=== PATIENT | male | born 1985 ===

== ENCOUNTER 2018-07-04 10:00 | Inpatient (IN) ==
--- NOTE | 2018-07-04 10:51 | ED ---
HPI General Chief complaint: Extremity Injury, Lower Stated complaint: Left leg pain Time Seen by Provider: 07/04/18 10:15 History of Present Illness HPI narrative: Patient is a 33-year-old male presents the emergency department with low back pain radiating down his right leg intermittently for the past 2 weeks. He is been to urgent care twice in the past 2 weeks for evaluation of this, he was started on muscle relaxers and states that it feels fine as long she is has some muscle relaxers. Denies any saddle anesthesia, he states with the pain medication he has been urinating more frequently. Denies history of IV drug abuse, denies history he states he was told that if he continued to have pain he should present here for a CAT scan of his back. Patient also has had intermittent fevers, his last visit to urgent care center actually 100.9 fever at the time and he did not understand why. He also was evaluated prior to the back pain for flulike symptoms at another urgent care. He states he continues to have shocklike sensations going down his right leg throughout the day and he is quite concerned over. Related Data Home Medications Medication Instructions Recorded Confirmed cyclobenzaprine 10 mg PO TID 07/04/18 07/04/18 diclofenac sodium 75 mg PO BID 07/04/18 07/04/18 Allergies Allergy/AdvReac Type Severity Reaction Status Date / Time No Known Allergies Allergy Verified 07/04/18 10:26 Review of Systems ROS: all other systems reviewed are negative FORMERLY [facility], [facility] Medical History Medical History Patient denies medical problems (Acute) Surgical History Surgical History No history of previous surgery (Acute) Social History Social History Smoking Status: Never smoker How Often Do You Have a Drink Containing Alcohol: Never Immunization History Tetanus Immunization: <5 Years Course Initial Documented Vital Signs Temperature 98.4 F 07/04/18 10:08 Pulse Rate 122 H 07/04/18 10:08 Respiratory Rate 16 07/04/18 10:08 Blood Pressure 143/63 H 07/04/18 10:08 Pulse Oximetry 100 07/04/18 10:08 Last Documented Vital Signs Temperature 98.4 F 07/04/18 10:08 Pulse Rate 112 H 07/04/18 14:34 Respiratory Rate 18 07/04/18 14:34 Blood Pressure 125/64 07/04/18 14:34 Pulse Oximetry 98 07/04/18 14:34 Critical Care Time Critical Care Time: Yes Total Critical Care Time: 35 Attestation: Aggregate critical care time was 35 minutes. Time to perform other separately billable procedures was not included in the critical care time. My time did not include minutes spent treating any other patients simultaneously or on activities that did not directly contribute to the patient's treatment. The services I provided to this patient were to treat and/or prevent clinically significant deterioration that could result in: Disability and Organ Failure. I provided critical care services requiring my management, as noted below: Chart data review, documentation time, medication orders and management, vital sign assessments/reviewing monitor data, ordering and reviewing lab tests, ordering and interpreting/reviewing x-rays and diagnostic studies, care of the patient and discussion of the patient with the admitting physicians. Medical Decision Making MDM Narrative Medical decision making narrative: Patient room in the emergency department, he appears well and in no obvious distress, quite comfortable. His chief complaint is that sciatic type pain down his right lower extremity. Given he has had intermittent fevers I think that he needs to rule out abscess of his spine even though he is very low risk for it. An MRI was ordered. I have added basic labs on specifically for creatinine for IV contrast for his MRI. Interestingly enough the patient's white blood cell count is elevated near 30, 000 with predominantly neutrophils. He is afebrile here but does elevate elevated heart rate. A liter of normal saline was given to him. He certainly does not appear toxic in any way. MRI was negative for abscess or source of this elevated white blood cell count and intermittent fevers. He does have some degenerative disc disease. Chest x-ray and urinalysis was added on which also do not explain the patient's elevated white blood cell count ESR CRP lactic acid blood cultures were added on and the patient went for CAT scan of the abdomen. I have convinced him that he needs to stay in the hospital for evaluation. The differential diagnosis at this point included lymphoma leukemia infection. Patient went for CAT scan of the abdomen which appears to reveal the source of his white blood cell count which is a liver abscess. The patient had Shawn been started on broad-spectrum antibiotics including vancomycin and Zosyn. Patient was discussed with Dr. Brady who will admit. We discussed getting an infectious disease consult. Medical Screen Exam Complete: Yes Emergency Medical Condition: Yes Lab Data Result diagrams: 07/04/18 11:19 07/04/18 11:19 Lab Results 07/04/18 07/04/18 07/04/18 Range/Units 11:19 11:19 12:13 WBC 29.3 H (4.0-11.0) th/mm3 RBC 4.43 L (4.50-5.90) mil/mm3 Hgb 12.5 L (13.0-17.0) gm/dL Hct 36.4 L (39.0-51.0) % MCV 82.1 (80.0-100.0) fL MCH 28.3 (27.0-34.0) pg MCHC 34.4 (32.0-36.0) % RDW 13.7 (11.6-17.2) % Plt Count 392 (150-450) th/mm3 MPV 7.6 (7.0-11.0) fL Neut % (Auto) 86.7 H (16.0-70.0) % Lymph % (Auto) 6.2 L (9.0-44.0) % [place] % (Auto) 6.7 (0.0-8.0) % Eos % (Auto) 0.2 (0.0-4.0) % Baso % (Auto) 0.2 (0.0-2.0) % Neut # (Auto) 25.4 H (1.8-7.7) th/mm3 Lymph # (Auto) 1.8 (1.0-4.8) th/mm3 [place] # (Auto) 2.0 H (0.0-0.9) th/mm3 Eos # (Auto) 0.0 (0.0-0.4) th/mm3 Baso # (Auto) 0.0 (0.0-0.2) th/mm3 WBC Differential . Differential Comment Auto diff final ESR (0-15) mm/hr Sodium 135 L (136-145) meq/L Potassium 3.6 (3.5-5.1) meq/L Chloride 97 L (98-107) meq/L Carbon Dioxide 29.6 (21.0-32.0) meq/L Anion Gap 8 (5-15) meq/L BUN 22 H (7-18) mg/dL Creatinine 0.88 (0.60-1.30) mg/dL Estimated GFR Greater than 89 (>89) mL/min Random Glucose 132 H (74-106) mg/dL Lactic Acid (0.4-2.0) mmol/L Calcium 8.9 (8.5-10.1) mg/dL C-Reactive Protein (0.00-0.30) mg/dL Urine Color Daphne (Yellw/Straw) Urine Clarity Hazy H (Clear) Urine pH 6.0 (5.0-8.5) Ur Specific [place] 1.025 (1.002-1.035) Urine Protein 100 H (Neg-Trace) mg/dL Urine Glucose (UA) Negative (Negative) mg/dL Urine Ketones Negative (Negative) mg/dL Urine Occult Blood Negative (Negative) Urine Nitrate Negative (Negative) Urine Bilirubin Negative (Negative) Urine Urobilinogen Less than 2 (Less than 2) mg/dL Ur Leukocyte Esterase Negative (Negative) Urine RBC 1 (0-3) /hpf Urine WBC 5 (0-5) /hpf Urine Bacteria Moderate H (None) /hpf Hyaline Casts 33 (0-3) /lpf Urine Mucus Moderate H (Occasional) /lpf Ur Microscopic Review Not Reportable Monoscreen (Neg) 07/04/18 07/04/18 07/04/18 Range/Units 14:19 14:19 14:19 WBC (4.0-11.0) th/mm3 RBC (4.50-5.90) mil/mm3 Hgb (13.0-17.0) gm/dL Hct (39.0-51.0) % MCV (80.0-100.0) fL MCH (27.0-34.0) pg MCHC (32.0-36.0) % RDW (11.6-17.2) % Plt Count (150-450) th/mm3 MPV (7.0-11.0) fL Neut % (Auto) (16.0-70.0) % Lymph % (Auto) (9.0-44.0) % [place] % (Auto) (0.0-8.0) % Eos % (Auto) (0.0-4.0) % Baso % (Auto) (0.0-2.0) % Neut # (Auto) (1.8-7.7) th/mm3 Lymph # (Auto) (1.0-4.8) th/mm3 [place] # (Auto) (0.0-0.9) th/mm3 Eos # (Auto) (0.0-0.4) th/mm3 Baso # (Auto) (0.0-0.2) th/mm3 WBC Differential Differential Comment ESR 21 H (0-15) mm/hr Sodium (136-145) meq/L Potassium (3.5-5.1) meq/L Chloride (98-107) meq/L Carbon Dioxide (21.0-32.0) meq/L Anion Gap (5-15) meq/L BUN (7-18) mg/dL Creatinine (0.60-1.30) mg/dL Estimated GFR (>89) mL/min Random Glucose (74-106) mg/dL Lactic Acid 1.1 (0.4-2.0) mmol/L Calcium (8.5-10.1) mg/dL C-Reactive Protein 22.70 H (0.00-0.30) mg/dL Urine Color (Yellw/Straw) Urine Clarity (Clear) Urine pH (5.0-8.5) Ur Specific [place] (1.002-1.035) Urine Protein (Neg-Trace) mg/dL Urine Glucose (UA) (Negative) mg/dL Urine Ketones (Negative) mg/dL Urine Occult Blood (Negative) Urine Nitrate (Negative) Urine Bilirubin (Negative) Urine Urobilinogen (Less than 2) mg/dL Ur Leukocyte Esterase (Negative) Urine RBC (0-3) /hpf Urine WBC (0-5) /hpf Urine Bacteria (None) /hpf Hyaline Casts (0-3) /lpf Urine Mucus (Occasional) /lpf Ur Microscopic Review Monoscreen (Neg) 07/04/18 Range/Units 14:19 WBC (4.0-11.0) th/mm3 RBC (4.50-5.90) mil/mm3 Hgb (13.0-17.0) gm/dL Hct (39.0-51.0) % MCV (80.0-100.0) fL MCH (27.0-34.0) pg MCHC (32.0-36.0) % RDW (11.6-17.2) % Plt Count (150-450) th/mm3 MPV (7.0-11.0) fL Neut % (Auto) (16.0-70.0) % Lymph % (Auto) (9.0-44.0) % [place] % (Auto) (0.0-8.0) % Eos % (Auto) (0.0-4.0) % Baso % (Auto) (0.0-2.0) % Neut # (Auto) (1.8-7.7) th/mm3 Lymph # (Auto) (1.0-4.8) th/mm3 [place] # (Auto) (0.0-0.9) th/mm3 Eos # (Auto) (0.0-0.4) th/mm3 Baso # (Auto) (0.0-0.2) th/mm3 WBC Differential Differential Comment ESR (0-15) mm/hr Sodium (136-145) meq/L Potassium (3.5-5.1) meq/L Chloride (98-107) meq/L Carbon Dioxide (21.0-32.0) meq/L Anion Gap (5-15) meq/L BUN (7-18) mg/dL Creatinine (0.60-1.30) mg/dL Estimated GFR (>89) mL/min Random Glucose (74-106) mg/dL Lactic Acid (0.4-2.0) mmol/L Calcium (8.5-10.1) mg/dL C-Reactive Protein (0.00-0.30) mg/dL Urine Color (Yellw/Straw) Urine Clarity (Clear) Urine pH (5.0-8.5) Ur Specific [place] (1.002-1.035) Urine Protein (Neg-Trace) mg/dL Urine Glucose (UA) (Negative) mg/dL Urine Ketones (Negative) mg/dL Urine Occult Blood (Negative) Urine Nitrate (Negative) Urine Bilirubin (Negative) Urine Urobilinogen (Less than 2) mg/dL Ur Leukocyte Esterase (Negative) Urine RBC (0-3) /hpf Urine WBC (0-5) /hpf Urine Bacteria (None) /hpf Hyaline Casts (0-3) /lpf Urine Mucus (Occasional) /lpf Ur Microscopic Review Monoscreen Neg (Neg) Imaging Data Radiologist's impression: Lumbar Spine MRI 07/04/18 10:49 CONCLUSION: 1. Minimal degenerative disc disease at L4-5 and L5-S1 without central canal stenosis. 2. Minimal caudal right neural foraminal narrowing at L5-S1 without evidence for impingement. 3. No abnormal enhancement. Chest X-Ray 07/04/18 11:54 CONCLUSION: No acute cardiopulmonary process. Abdomen/Pelvis CT 07/04/18 14:04 CONCLUSION: 1. 4.9 x 3.6 x 3.4 cm peripherally enhancing low density mass in segment 8 of the liver extending to the dome. This lesion is most concerning for liver abscess. Less likely differential consideration includes hepatic mass. Discharge Plan Discharge Disposition Patient Disposition: 30 Still Patient Discharge Condition Condition: Fair Discharge Details Diagnosis: Sepsis, Abscess of liver, Sciatica Physicians Team ED Provider: Reuben Alicia Primary Care Provider: UNKNOWN, Rxs /Orders / Referrals /Forms Prescriptions: No Action cyclobenzaprine 10 mg Tablet 10 mg PO TID RF: 0 diclofenac sodium 75 mg Tablet,Delayed Release (Dr/Ec) 75 mg PO BID RF: 0 Status ED Status: Admitted Patient
[2018-07-04 11:36] LABS: Baso % (Auto) 0.2 % (0.0-2.0); Eos % (Auto) 0.2 % (0.0-4.0); Hematocrit 36.4 % (39.0-51.0); Hemoglobin 12.5 gm/dL (13.0-17.0); Lymph # (Auto) 1.8 th/mm3 (1.0-4.8); Lymph % (Auto) 6.2 % (9.0-44.0); Mean Corpuscular HGB Conc 34.4 % (32.0-36.0); Mean Corpuscular Hemoglobin 28.3 pg (27.0-34.0); Mean Corpuscular Volume 82.1 fL (80.0-100.0); Mean Platelet Volume 7.6 fL (7.0-11.0); Mono % (Auto) 6.7 % (0.0-8.0); Neut # (Auto) 25.4 th/mm3 (1.8-7.7); Neut % (Auto) 86.7 % (16.0-70.0); Platelet Count 392 th/mm3 (150-450); Red Blood Count 4.43 mil/mm3 (4.50-5.90); Red Cell Distribution Width 13.7 % (11.6-17.2); White Blood Count 29.3 th/mm3 (4.0-11.0)
[2018-07-04 11:51] LABS: Anion Gap 8 meq/L (5-15); Blood Urea Nitrogen 22 mg/dL (7-18); Calcium 8.9 mg/dL (8.5-10.1); Carbon Dioxide 29.6 meq/L (21.0-32.0); Chloride 97 meq/L (98-107); Glomerular Filtration Rate Greater Than 89 mL/min (>89); Glucose,Random 132 mg/dL (74-106); Potassium 3.6 meq/L (3.5-5.1); Sodium 135 meq/L (136-145)
--- NOTE | 2018-07-04 12:23 | XR ---
EXAM DATE: 07/04/2018 12:17 PM EST AGE/SEX: 33 years / Male INDICATIONS: Right leg pain. CLINICAL DATA: This is the patient's initial encounter. Patient reports that signs and symptoms have been present for 2 weeks and indicates a pain score of 5/10. MEDICAL/SURGICAL HISTORY: None. None. COMPARISON: No prior exams available for comparison. FINDINGS: A single AP view of the chest demonstrates the lungs to be symmetrically aerated without evidence of mass, infiltrate or effusion. The cardiomediastinal contours are unremarkable. Osseous structures a re intact. CONCLUSION: No acute cardiopulmonary process. Electronically signed by: Master Rosa MD 07/04/2018 12:22 PM EST
[2018-07-04] MEDS ORDERED: Gadobutrol PF 7.5 MMOL/7.5 ML Vial (for RAD) IV.SIG ONE (12:51)
[2018-07-04 12:54] LABS: Bacteria,Urine Moderate /hpf; Bilirubin,Urine Negative (Negative); Clarity,Urine Hazy (Clear); Color,Urine Amber (Yellw/Straw); Glucose,Urine (UA) Negative (Negative); Hyaline Casts,Urine 33 /lpf (0-3); Leukocyte Esterase,Urine Negative (Negative); Mucus,Urine Moderate /lpf (Occasional); Nitrite,Urine Negative (Negative); Specific Gravity,Urine 1.025 (1.002-1.035)
--- NOTE | 2018-07-04 13:44 | MR ---
EXAM DATE: 07/04/2018 1:05 PM EST AGE/SEX: 33 years / Male INDICATIONS: Radiculopathy. Pain in back and down right leg with fevers and increase white count. CLINICAL DATA: This is the patient's initial encounter. Patient reports that signs and symptoms have been present for 4 - 6 days and indicates a pain score of 3/10. MEDICAL/SURGICAL HISTORY: None. None. COMPARISON: No prior exams available for comparison. TECHNIQUE: Multiplanar, multisequence MRI examination of the lumbar spine was performed without and with 7cc ml Gadavist (gadobutrol) contrast as a single exam dose. FINDINGS: Vertebra: The most caudal-appearing lumbar vertebra is numbered as L5. Vertebral Body heights are in tact. Sagital alignment is maintained. Focal regions of increased T1 and T2 signal in the S2 and S3 likely reflecting small hemangiomas. Discs: Disc spaces are maintained. Conus: Normal level and configuration. POST-CONTRAST: No abnormal areas of enhancement are seen. Paraspinal Soft Tissues: No significantfocal renal abnormalities in the visualized kidneys. Visualize d aorta is non-aneurysmal. No Retroperitoneal adenopathy. T12-L1: The thecal sac has a normal diameter. No evidence of disc bulge or protrusion. The neural foramina are patent bilaterally. L1-L2: The thecal sac has a normal diameter. No evidence of disc bulge or protrusion. The neural foramina are patent bilaterally. L2-L3: The thecal sac has a normal diameter. No evidence of disc bulge or protrusion. The neural foramina are patent bilaterally. L3-L4: The thecal sac has a normal diameter. No evidence of disc bulge or protrusion. The neural foramina are patent bilaterally. L4-L5: Subtle posterior disc protrusion without central canal or neural foraminal stenosis. L5-S1: Minimal diffuse disc bulge with superimposed central posterior disc protrusion. No significa nt central canal stenosis. Very mild caudal right neural foraminal narrowing. CONCLUSION: 1. Minimal degenerative disc disease at L4-5 and L5-S1 without central canal stenosis. 2. Minimal caudal right neural foraminal narrowing at L5-S1 without evidence for impingement. 3. No abnormal enhancement. Electronically signed by: Judson Arteaga MD 07/04/2018 1:43 PM EST
[2018-07-04] MEDS ORDERED: Sod Chloride 0.9% Inj 1,000 ML IV.SIG SCH (14:45)
[2018-07-04 15:37] LABS: Mono Screen Neg (Neg)
[2018-07-04] MEDS ORDERED: Piperacil/Tazo 4.5 GM Premix 4.5 GM/100 ML BAG IV.SIG ONE (15:45)
[2018-07-04] MEDS ORDERED: Vancomycin Inj 1,000 MG in Sodium Chlor 0.9% Inj 250 ML IV.SIG ONE (15:45)
--- NOTE | 2018-07-04 16:33 | CT ---
EXAM DATE: 07/04/2018 4:27 PM EST AGE/SEX: 33 years / Male INDICATIONS: Right leg pain and elevated white blood cell count today. CLINICAL DATA: This is the patient's initial encounter. Patient reports that signs and symptoms have been present for 1 day and indicates a pain score of 5/10. MEDICAL/SURGICAL HISTORY: None. None. ORAL CONTRAST: No oral contrast ingested. RADIATION DOSE: 5.13 CTDI (mGy) COMPARISON: No prior exams available for comparison. TECHNIQUE: Multiple contiguous axial images were obtained through the abdomen and pelvis following b olus infusion of 95 ml Omnipaque 350 (iohexol) nonionic water-soluble contrast as a single exam dos e. No oral contrast ingested. Using automated exposure control and adjustment of the mA and/or kV ac cording to patient size, radiation dose was kept as low as reasonably achievable to obtain optimal di agnostic quality images. DICOM format image data is available electronically for review and comparis on. FINDINGS: LOWER LUNGS: The visualized lower lungs are clear. LIVER: There is a 4.9 x 3.6 x 3.4 cm peripherally enhancing low density mass in segment 8 of liver w ith small subcentimeter satellite lesion medially. This lesion abuts the dome of the liver. Liver oth erwise appears normal in appearance without evidence for intrahepatic ductal dilatation or volume los s. SPLEEN: Homogeneous density without enlargement. PANCREAS: Unremarkable without mass or calcification. KIDNEYS: Kidneys demonstrate symmetrical enhancement and are symmetrical in size without evidence fo r radiopaque renal calculi or hydronephrosis. ADRENAL GLANDS: Unremarkable. AORTA: Avelina-aneurysmal. BOWEL/MESENTERY: The bowel loops are grossly unremarkable. The cecum and sigmoid colon have a luis angel l configuration. No free fluid or drainable fluid collections. No free air or pneumatosis. ABDOMINAL WALL: Intact. RETROPERITONEUM: No evidence of adenopathy in the retrocrural, para-aortic, or deep pelvic regions. BLADDER: Contours are smooth. REPRODUCTIVE: No abnormal masses or calcifications seen. BONY STRUCTURES: Unremarkable. CONCLUSION: 1. 4.9 x 3.6 x 3.4 cm peripherally enhancing low density mass in segment 8 of the liver extending to the dome. This lesion is most concerning for liver abscess. Less likely differential consideration i ncludes hepatic mass. Electronically signed by: Judson Arteaga MD 07/04/2018 4:31 PM EST
[2018-07-04] MEDS ORDERED: Bisacodyl 10 MG Supp RECTAL PRN (17:10)
[2018-07-04] MEDS ORDERED: Acetaminophen 325 MG Tablet PO PRN (17:10)
[2018-07-04] MEDS ORDERED: Naloxone Inj 0.4 MG/ML Vial IV.PUSH PRN (17:10)
[2018-07-04 17:31] LABS: Alanine Aminotransferase 333 U/L (12-78); Albumin 2.8 g/dL (3.4-5.0); Aspartate Aminotransferase 102 U/L (15-37)
[2018-07-04 17:32] LABS: Alkaline Phosphatase 302 U/L (45-117); Total Protein 8.5 g/dL (6.4-8.2)
--- NOTE | 2018-07-04 18:01 | P.HPIM ---
History of Present Illness Service: [facility] Primary Care Physician: UNKNOWN Chief Complaint: right leg pain History of Present Illness: This is a 33 years old [place]ian male with unknown past medical history other than the flu in May 2018, and was treated with Tamiflu and Tylenol at that time presents to the emergency department with low back pain radiating down his right leg intermittently for the past 2 weeks. Patient has been in the urgent care twice for evaluation of this, he was started on muscle relaxers, cyclobenzaprine however without relief. He came back after 5 days and was prescribed with diclofenac and methylprednisolone which is getting some relief however only last for 4 hours and the pain comes back. Patient stated when the pain comes it this intense from the scale of 0-10 X12. Patient stated pain started on his lower back and radiates down to the right leg down to knee and his ankle.Patient denies any other medical history, denies any surgical history , denies any smoking, alcohol use or IV drug use. Patient states that he moved down here from [place] 3 years ago. Patient denies any family medical history stated his family are all well and never gets sick. On ED workup patient was found to have elevated WBC of 29.3, ESR 21 and liver mass that is unknown to the patient. Patient denies any symptoms of fever, chills, abdominal pain, nausea or vomiting. Patient denies any other medical history other than the Flu last May. Patient stated the last time he traveled was 3 years ago from [place]. Lumbar spine MRI showed Minimal degenerative disc disease at L4-5 and L5-S1 without central canal stenosis, Minimal caudal right neural foraminal narrowing at L5-S1 without evidence for impingement and No abnormal enhancement CT of Abdomen and Pelvis showed 4.9 x 3.6 x 3.4 cm peripherally enhancing low density mass in segment 8 of the liver extending to the dome. This lesion is most concerning for liver abscess. Less likely differential consideration includes hepatic mass. - Diagnosis (1) Sepsis (2) Abscess of liver (3) Sciatica Inpatient Certification: I certify that the inpatient services were ordered in accordance with Medicare regulations governing the order. This includes certification that hospital inpatient services are reasonable and necessary and in the case of services not specified as inpatient-only under 42 CFR 419.22(n), that they are appropriately provided as inpatient services in accordance to with the 2-midnight benchmark under 43 CFR 412.3(e) Estimated Total Length of Stay (Days): 3 Plans for Post Hospital Care: Home Review of Systems All other systems reviewed negative except as stated in HPI [facility] - History History Provided By: Patient - Medical / Surgical Hx Neg / Unobtainable Medical Problems Denied: Yes Surgical History: No Previous Surgery - Medical History Medical History: Medical History (Last Updated 07/04/18 @ 18:00 by MELVIN Sutherland) Flu Ingrown right big toenail Patient denies medical problems - Surgical History Surgical History: Surgical History (Last Updated 07/04/18 @ 10:28 by Cammy Colón) No history of previous surgery - Family History Family History: Family History (Last Updated 07/04/18 @ 18:00 by MELVIN Sutherland) Other No pertinent family history - Social History I have reviewed the patient's Social History: Yes - Tobacco History Second Hand Smoke Exposure: No Tobacco Use In Past 30 Days: No Smoking Status: Never smoker - Alcohol History How Often Do You Have a Drink Containing Alcohol: Never - Immunization History Tetanus Immunization: <5 Years Medications and Allergies Active Medications: Active Medications Acetaminophen (Tylenol) 650 mg PO Q4H PRN PRN Reason: Temp > 100.4 Al Hydroxide/Mg Hydroxide (Milk Of Magnesia Liq) 30 ml PO Q12H PRN PRN Reason: Mild Constipation Bisacodyl (Dulcolax Supp) 10 mg RECTAL DAILY PRN PRN Reason: SEVERE CONSITIPATION Lactulose (Lactulose Liq) 30 ml PO DAILY PRN PRN Reason: SEVERE CONSITIPATION Naloxone HCl (Narcan Inj) 0.4 mg IV.PUSH UNSCH PRN PRN Reason: SEE LABEL COMMENTS Ondansetron HCl (Zofran Inj) 4 mg IV.PUSH Q6H PRN PRN Reason: NAUSEA OR VOMITING Senna/Docusate Sodium (Sonia-Colace) 1 tab PO BID SHAUNA Sennosides (Senokot) 17.2 mg PO Q12H PRN PRN Reason: Moderate Constipation Allergies Allergy/AdvReac Type Severity Reaction Status Date / Time No Known Allergies Allergy Verified 07/04/18 10:26 Home Medications Medication Instructions Recorded Confirmed Type cyclobenzaprine 10 mg PO TID 07/04/18 07/04/18 History diclofenac sodium 75 mg PO BID 07/04/18 07/04/18 History Exam Vital signs: Vital Signs 07/04/18 10:08 07/04/18 14:34 Temperature 98.4 F Pulse Rate 122 H 112 H Respiratory Rate 16 18 Blood Pressure 143/63 H 125/64 Pulse Oximetry 100 98 Intake & Output 07/03/18 07/04/18 07/04/18 18:59 06:59 18:59 Intake Total 1350 / 1350 Balance 1350 / 1350 Weight 55.338 kg Intake: IV 1350 / 1350 Zosyn 4.5 GM Premix 4.5 gm In 100 / 100 100 ml @ 200 mls/hr IV.SIG ONCE ONE Rx#:[id number] NS Inj 1,000 ML @ 1000 mls/hr 1000 / 1000 IV.SIG BOLUS SHAUNA Rx#:[id number] Vancomycin Inj 1,000 MG In NS 250 / 250 Inj 250 ML @ 250 mls/hr IV.SIG ONCE ONE Rx#:[id number] Narrative: GENERAL: Well-developed, well-nourished, [place]ian male sitting in bed in no apparent distress SKIN: Warm and dry. HEAD: Atraumatic. Normocephalic. EYES: Pupils equal and round. No scleral icterus. No injection or drainage. ENT: No nasal bleeding or discharge. Mucous membranes pink and moist. NECK: Trachea midline. No JVD. CARDIOVASCULAR: Regular rate and rhythm. RESPIRATORY: No accessory muscle use. Clear to auscultation. Breath sounds equal bilaterally. GASTROINTESTINAL: Abdomen soft, non-tender, nondistended. Hepatic and splenic margins not palpable. MUSCULOSKELETAL: Extremities without clubbing, cyanosis, or edema. No obvious deformities. NEUROLOGICAL: Awake and alert. No obvious cranial nerve deficits. Motor grossly within normal limits. Five out of 5 muscle strength in the arms and legs. Normal speech. PSYCHIATRIC: Appropriate mood and affect; insight and judgment normal. Results - Labs CBC & Chem 7: 07/04/18 11:19 07/04/18 11: Labs: Short CBC 07/04/18 Range/Units 11: WBC 29.3 H (4.0-11.0) th/mm3 Hgb 12.5 L (13.0-17.0) gm/dL Hct 36.4 L (39.0-51.0) % Plt Count 392 (150-450) th/mm3 [facility] 07/04/18 11:19 Sodium 135 L Potassium 3.6 Chloride 97 L Carbon Dioxide 29.6 BUN 22 H Creatinine 0.88 Calcium 8.9 Liver Function 07/04/18 Range/Units 11:19 Total Bilirubin 0.3 (0.2-1.0) mg/dL Direct Bilirubin 0.1 (0.0-0.2) mg/dL AST 102 H (15-37) U/L ALT 333 H (12-78) U/L Alkaline Phosphatase 302 H (45-117) U/L Albumin 2.8 L (3.4-5.0) g/dL Urine 07/04/18 Range/Units 12:13 Urine Color [place]aphne (Yellw/Straw) Urine Clarity Hazy H (Clear) Urine pH 6.0 (5.0-8.5) Ur Specific [place] 1.025 (1.002-1.035) Urine Protein 100 H (Neg-Trace) mg/dL Urine Glucose (UA) Negative (Negative) mg/dL - Imaging Impressions Lumbar Spine MRI 07/04/18 10:49 CONCLUSION: 1. Minimal degenerative disc disease at L4-5 and L5-S1 without central canal stenosis. 2. Minimal caudal right neural foraminal narrowing at L5-S1 without evidence for impingement. 3. No abnormal enhancement. Chest X-Ray 07/04/18 11:54 CONCLUSION: No acute cardiopulmonary process. Abdomen/Pelvis CT 07/04/18 14:04 CONCLUSION: 1. 4.9 x 3.6 x 3.4 cm peripherally enhancing low density mass in segment 8 of the liver extending to the dome. This lesion is most concerning for liver abscess. Less likely differential consideration includes hepatic mass. Caprini VTE Risk Assessment Caprini VTE Risk Assessment: No/Low Risk (score <= 1) Caprini Risk Assessment Model: Point Value = 1 Point Value = 2 Point Value = 3 Point Value = 5 Age 41-60 Minor surgery BMI > 25 kg/m2 Swollen legs Varicose veins or History of unexplained or recurrent spontaneous Oral contraceptives or hormone replacement Sepsis (< 1 month) Serious lung disease, including pneumonia (< 1 month) Abnormal pulmonary function Acute myocardial infarction Congestive heart failure (< 1 month) History of inflammatory bowel disease Medical patient at bed rest Age 61-74 Arthroscopic surgery Major open surgery (> 45 min) Laparoscopic surgery (> 45 min) Malignancy Confined to bed (> 72 hours) Immobilizing plaster cast Central venous access Age >= 75 History of VTE Family history of VTE Factor V Leiden Prothrombin [id number] Lupus anticoagulant Anticardiolipin antibodies Elevated serum homocysteine Heparin-induced thrombocytopenia Other congenital or acquired thrombophilia Stroke (< 1 month) Elective arthroplasty Hip, pelvis, or leg fracture Acute spinal cord injury (< 1 month) Prophylaxis Regimen: Total Risk Factor Score Risk Level Prophylaxis Regimen 0-1 Low Early ambulation 2 Moderate Order ONE of the following: *Sequential Compression Device (SCD) *Heparin 5000 units SQ BID 3-4 Higher Order ONE of the following medications: *Heparin 5000 units SQ TID *Enoxaparin/Lovenox 40 mg SQ daily (WT < 150 kg, CrCl > 30 mL/min) *Enoxaparin/Lovenox 30 mg SQ daily (WT < 150 kg, CrCl > 10-29 mL/min) *Enoxaparin/Lovenox 30 mg SQ BID (WT < 150 kg, CrCl > 30 mL/min) AND/OR *Sequential Compression Device (SCD) 5 or more Highest Order ONE of the following medications: *Heparin 5000 units SQ TID (Preferred with Epidurals) *Enoxaparin/Lovenox 40 mg SQ daily (WT < 150 kg, CrCl > 30 mL/min) *Enoxaparin/Lovenox 30 mg SQ daily (WT < 150 kg, CrCl > 10-29 mL/min) *Enoxaparin/Lovenox 30 mg SQ BID (WT < 150 kg, CrCl > 30 mL/min) AND *Sequential Compression Device (SCD) Assessment and Plan - Assessment (1) Sepsis Code(s): A41.9 - Sepsis, unspecified organism Status: Acute (2) Abscess of liver Code(s): K75.0 - Abscess of liver Status: Acute (3) Sciatica Code(s): M54.30 - Sciatica, unspecified side Status: Acute - Plan This is a 33 years old [place]ian male with unknown past medical history other than the flu in May 2018, and was treated with Tamiflu and Tylenol at that time presents to the emergency department with low back pain radiating down his right leg intermittently for the past 2 weeks. On ED workup patient was found to have elevated WBC of 29.3, ESR 21 and liver mass that is unknown to the patient. Sepsis Leukocytosis Liver Abcess -patient have elevated WBC 29.3, and Tachycardia 110's-120's that meets the sepsis criteria for admission -started on empiric treatment with IV Vancomycin and Zosyn -Consult ID, appreciate recommendation -monitor CBC, CRP, and ESR -start IVF NS for hydration Transaminitis -no known history of liver disease -likely related to liver mass -check hepatitis panel Tachycardia HR elevated in 110's-120's -likely related to sepsis/infection/liver abcess -started on IVF NS Sciatic Pain Lumbar Spine MRI : . Minimal degenerative disc disease at L4-5 and L5-S1 without central canal stenosis. Minimal caudal right neural foraminal narrowing at L5-S1 without evidence for impingement. No abnormal enhancement. -continue diclofenac -start on iV Morphine prn for breakthrough pain DVT Prophylaxis: SCD's while in bed Code Status: full code Discussed Condition With: patient, family and Nurse Dr. Teresa Brady
[2018-07-04] MEDS ORDERED: Morphine Inj 4 MG/ML Vial IV.PUSH PRN (18:18)
[2018-07-04] MEDS: Senna/Docusate Sodium 8.6/50 MG Tablet PO SCH (20:06)
[2018-07-04] MEDS: Sod Chloride 0.9% Inj 1,000 ML IV.CONT SCH (20:47)
[2018-07-04] MEDS ORDERED: Ibuprofen 400 MG Tablet PO ONE (20:54)
[2018-07-05] MEDS: Piperacil/Tazo 3.375 GM Premix 50 ML IV.SIG SCH ×4 (00:19→23:47)
[2018-07-05] MEDS: Morphine Inj 4 MG/ML Vial IV.PUSH PRN ×2 (00:23→05:07)
[2018-07-05] MEDS ORDERED: Ketorolac Inj 30 MG/ML (IVP) Vial IV.PUSH ONE (01:39)
[2018-07-05] MEDS: Vancomycin Inj 1,000 MG in Sodium Chlor 0.9% Inj 250 ML IV.SIG SCH ×2 (03:58→16:04)
[2018-07-05 05:55] LABS: Baso # (Auto) 0.1 th/mm3 (0.0-0.2); Baso % (Auto) 0.3 % (0.0-2.0); Eos # (Auto) 0.1 th/mm3 (0.0-0.4); Eos % (Auto) 0.4 % (0.0-4.0); Hemoglobin 11.2 gm/dL (13.0-17.0); Lymph # (Auto) 2.5 th/mm3 (1.0-4.8); Lymph % (Auto) 10.8 % (9.0-44.0); Mean Corpuscular HGB Conc 32.9 % (32.0-36.0); Mean Corpuscular Hemoglobin 26.7 pg (27.0-34.0); Mean Corpuscular Volume 81.2 fL (80.0-100.0); Mean Platelet Volume 7.9 fL (7.0-11.0); Mono # (Auto) 1.8 th/mm3 (0.0-0.9); Mono % (Auto) 7.7 % (0.0-8.0); Neut # (Auto) 18.6 th/mm3 (1.8-7.7); Neut % (Auto) 80.8 % (16.0-70.0); Platelet Count 364 th/mm3 (150-450); Red Blood Count 4.19 mil/mm3 (4.50-5.90); Red Cell Distribution Width 13.5 % (11.6-17.2); White Blood Count 23.1 th/mm3 (4.0-11.0)
[2018-07-05 06:23] LABS: Albumin 2.4 g/dL (3.4-5.0); Anion Gap 7 meq/L (5-15); Aspartate Aminotransferase 51 U/L (15-37); Blood Urea Nitrogen 21 mg/dL (7-18); Calcium 8.5 mg/dL (8.5-10.1); Carbon Dioxide 29.2 meq/L (21.0-32.0); Chloride 102 meq/L (98-107); Glomerular Filtration Rate Greater Than 89 mL/min (>89); Glucose,Random 98 mg/dL (74-106); Potassium 4.2 meq/L (3.5-5.1); Sodium 138 meq/L (136-145)
[2018-07-05 06:25] LABS: Alanine Aminotransferase 211 U/L (12-78); Alkaline Phosphatase 242 U/L (45-117); Total Protein 7.3 g/dL (6.4-8.2)
[2018-07-05] MEDS: Sod Chloride 0.9% Inj 1,000 ML IV.CONT SCH ×3 (06:38→23:48)
[2018-07-05 07:14] LABS: Hepatitis A IgM Antibody Nonreactive (Nonreactive); Hepatitits B Surface Antigen Nonreactive (Nonreactive)
--- NOTE | 2018-07-05 08:43 | P.PNIM ---
Subjective Interval history: Patient is reporting increased pain starting at approximately 4am last night. No other complaints. Leukocytosis has improved and no fevers since yesterday. Physical Exam Vital signs: Vital Signs 07/04/18 10:08 07/04/18 14:34 07/04/18 20:00 Temperature 98.4 F 98.3 F Pulse Rate 122 H 112 H 101 H Respiratory Rate 16 18 17 Blood Pressure 143/63 H 125/64 128/65 Pulse Oximetry 100 98 99 07/04/18 21:39 07/04/18 23:37 07/05/18 00:55 Temperature 98.2 F Pulse Rate 105 H Respiratory Rate 16 17 20 Blood Pressure 127/66 Pulse Oximetry 98 07/05/18 02:17 07/05/18 04:00 07/05/18 05:37 Temperature 98.3 F Pulse Rate 99 H Respiratory Rate 17 17 20 Blood Pressure 126/65 Pulse Oximetry 98 07/05/18 08:00 Temperature 99.3 F Pulse Rate 104 H Respiratory Rate 22 Blood Pressure 140/68 Pulse Oximetry 100 Intake & Output 07/04/18 07/05/18 07/05/18 18:59 06:59 18:59 Intake Total 1350 / 1350 1300 / 1300 Balance 1350 / 1350 1300 / 1300 Weight 55.338 kg 55.338 kg Intake: IV 1350 / 1350 1300 / 1300 NS Inj 1,000 ML @ 100 mls/hr IV 1000 / 1000 .CONT .Q10H SHAUNA Rx#:[id number] Zosyn 3.375 GM Premix 50 ML @ 50 / 50 100 mls/hr IV.SIG Q8H SHAUNA Rx#: [id number] Zosyn 4.5 GM Premix 4.5 gm In 100 / 100 100 ml @ 200 mls/hr IV.SIG ONCE ONE Rx#:[id number] NS Inj 1,000 ML @ 1000 mls/hr 1000 / 1000 IV.SIG BOLUS SHAUNA Rx#:[id number] Vancomycin Inj 1,000 MG In NS 250 / 250 250 / 250 Inj 250 ML @ 250 mls/hr IV.SIG Q12H SHAUNA Rx#:[id number] Other: Weight On Admission 55.338 kg Narrative: GENERAL: NAD, A&Ox3 HEAD: Normocephalic. NECK: Supple, trachea midline. No lymphadenopathy. EYES: No scleral icterus. No injection or drainage. CARDIOVASCULAR: Regular rate and rhythm without murmurs, gallops, or rubs. RESPIRATORY: Breath sounds equal bilaterally. No accessory muscle use. GASTROINTESTINAL: Abdomen soft, nondistended. Diffusely tender abdomen MUSCULOSKELETAL: No cyanosis, or edema. SKIN: Warm and dry. NEURO: No focal neurological deficits. Results - Labs CBC & Chem 7: 07/05/18 05:01 07/05/18 05:01 Laboratory Results - last 24 hr 07/04/18 07/04/18 07/04/18 11:19 11:19 12:13 WBC 29.3 H RBC 4.43 L Hgb 12.5 L Hct 36.4 L MCV 82.1 MCH 28.3 MCHC 34.4 RDW 13.7 Plt Count 392 MPV 7.6 Neut % (Auto) 86.7 H Lymph % (Auto) 6.2 L Rhea % (Auto) 6.7 Eos % (Auto) 0.2 Baso % (Auto) 0.2 Neut # (Auto) 25.4 H Lymph # (Auto) 1.8 Rhea # (Auto) 2.0 H Eos # (Auto) 0.0 Baso # (Auto) 0.0 WBC Differential . Differential Comment Auto diff final ESR Sodium 135 L Potassium 3.6 Chloride 97 L Carbon Dioxide 29.6 Anion Gap 8 BUN 22 H Creatinine 0.88 Estimated GFR Greater than 89 Random Glucose 132 H Lactic Acid Calcium 8.9 Total Bilirubin 0.3 Direct Bilirubin 0.1 Indirect Bilirubin 0.2 AST 102 H ALT 333 H Alkaline Phosphatase 302 H C-Reactive Protein Total Protein 8.5 H Albumin 2.8 L Urine Color [place] Urine Clarity Hazy H Urine pH 6.0 Ur Specific [place] 1.025 Urine Protein 100 H Urine Glucose (UA) Negative Urine Ketones Negative Urine Occult Blood Negative Urine Nitrate Negative Urine Bilirubin Negative Urine Urobilinogen Less than 2 Ur Leukocyte Esterase Negative Urine RBC 1 Urine WBC 5 Urine Bacteria Moderate H Hyaline Casts 33 Urine Mucus Moderate H Ur Microscopic Review Not Reportable Hepatitis A IgM Ab Hep Bs Antigen Hep B Core IgM Ab Hep C IgG Ab Monoscreen HIV 1&2 Ab/P24 Ag 4thGn 07/04/18 07/04/18 07/04/18 14:19 14:19 14:19 WBC RBC Hgb Hct MCV MCH MCHC RDW Plt Count MPV Neut % (Auto) Lymph % (Auto) Rhea % (Auto) Eos % (Auto) Baso % (Auto) Neut # (Auto) Lymph # (Auto) Rhea # (Auto) Eos # (Auto) Baso # (Auto) WBC Differential Differential Comment ESR Sodium Potassium Chloride Carbon Dioxide Anion Gap BUN Creatinine Estimated GFR Random Glucose Lactic Acid 1.1 Calcium Total Bilirubin Direct Bilirubin Indirect Bilirubin AST ALT Alkaline Phosphatase C-Reactive Protein 22.70 H Total Protein Albumin Urine Color Urine Clarity Urine pH Ur Specific [place] Urine Protein Urine Glucose (UA) Urine Ketones Urine Occult Blood Urine Nitrate Urine Bilirubin Urine Urobilinogen Ur Leukocyte Esterase Urine RBC Urine WBC Urine Bacteria Hyaline Casts Urine Mucus Ur Microscopic Review Hepatitis A IgM Ab Hep Bs Antigen Hep B Core IgM Ab Hep C IgG Ab Monoscreen HIV 1&2 Ab/P24 Ag 4thGn Nonreactive 07/04/18 07/04/18 07/05/18 14:19 14:19 05:01 WBC 23.1 H RBC 4.19 L Hgb 11.2 L Hct 34.0 L MCV 81.2 MCH 26.7 L MCHC 32.9 RDW 13.5 Plt Count 364 MPV 7.9 Neut % (Auto) 80.8 H Lymph % (Auto) 10.8 Rhea % (Auto) 7.7 Eos % (Auto) 0.4 Baso % (Auto) 0.3 Neut # (Auto) 18.6 H Lymph # (Auto) 2.5 Rhea # (Auto) 1.8 H Eos # (Auto) 0.1 Baso # (Auto) 0.1 WBC Differential . Differential Comment Auto diff final ESR 21 H Sodium Potassium Chloride Carbon Dioxide Anion Gap BUN Creatinine Estimated GFR Random Glucose Lactic Acid Calcium Total Bilirubin Direct Bilirubin Indirect Bilirubin AST ALT Alkaline Phosphatase C-Reactive Protein Total Protein Albumin Urine Color Urine Clarity Urine pH Ur Specific [place] Urine Protein Urine Glucose (UA) Urine Ketones Urine Occult Blood Urine Nitrate Urine Bilirubin Urine Urobilinogen Ur Leukocyte Esterase Urine RBC Urine WBC Urine Bacteria Hyaline Casts Urine Mucus Ur Microscopic Review Hepatitis A IgM Ab Hep Bs Antigen Hep B Core IgM Ab Hep C IgG Ab Monoscreen Neg HIV 1&2 Ab/P24 Ag 4thGn 07/05/18 07/05/18 07/05/18 05:01 05:01 05:01 WBC RBC Hgb Hct MCV MCH MCHC RDW Plt Count MPV Neut % (Auto) Lymph % (Auto) Rhea % (Auto) Eos % (Auto) Baso % (Auto) Neut # (Auto) Lymph # (Auto) Rhea # (Auto) Eos # (Auto) Baso # (Auto) WBC Differential Differential Comment ESR 68 H Sodium 138 Potassium 4.2 Chloride 102 Carbon Dioxide 29.2 Anion Gap 7 BUN 21 H Creatinine 0.80 Estimated GFR Greater than 89 Random Glucose 98 Lactic Acid Calcium 8.5 Total Bilirubin 0.4 Direct Bilirubin Indirect Bilirubin AST 51 H ALT 211 H Alkaline Phosphatase 242 H C-Reactive Protein 17.10 H Total Protein 7.3 D Albumin 2.4 L Urine Color Urine Clarity Urine pH Ur Specific [place] Urine Protein Urine Glucose (UA) Urine Ketones Urine Occult Blood Urine Nitrate Urine Bilirubin Urine Urobilinogen Ur Leukocyte Esterase Urine RBC Urine WBC Urine Bacteria Hyaline Casts Urine Mucus Ur Microscopic Review Hepatitis A IgM Ab Nonreactive Hep Bs Antigen Nonreactive Hep B Core IgM Ab Nonreactive Hep C IgG Ab Nonreactive Monoscreen HIV 1&2 Ab/P24 Ag 4thGn - Imaging Impressions Lumbar Spine MRI 07/04/18 10:49 CONCLUSION: 1. Minimal degenerative disc disease at L4-5 and L5-S1 without central canal stenosis. 2. Minimal caudal right neural foraminal narrowing at L5-S1 without evidence for impingement. 3. No abnormal enhancement. Chest X-Ray 07/04/18 11:54 CONCLUSION: No acute cardiopulmonary process. Abdomen/Pelvis CT 07/04/18 14:04 CONCLUSION: 1. 4.9 x 3.6 x 3.4 cm peripherally enhancing low density mass in segment 8 of the liver extending to the dome. This lesion is most concerning for liver abscess. Less likely differential consideration includes hepatic mass. Assessment and Plan - Assessment (1) Sepsis Code(s): A41.9 - Sepsis, unspecified organism Status: Acute (2) Abscess of liver Code(s): K75.0 - Abscess of liver Status: Acute (3) Sciatica Code(s): M54.30 - Sciatica, unspecified side Status: Acute - Plan 33 years old Stateless male with no known past medical history admitted secondary to fluid-filled liver lesion suspicious for liver abscess with sepsis. Sepsis Tachycardia Improving, not resolved Follow vitals closely Treat infection as listed below Leukocytosis Liver Abcess Continue to monitor CBC Continue vancomycin Continue Zosyn ID following Continue IV hydration Will discuss with ID regarding drainage options, if necessary Transaminitis Likely secondary to liver fluid collection Slight improvement Follow LFTs Sciatic Pain May be indirectly related Continue pain treatments as needed Hold NSAIDs for possible procedure DVT Prophylaxis SCD's while in bed
[2018-07-05] MEDS ORDERED: HYDROmorphone PF Inj 2 MG/ML Vial IV.PUSH ONE (09:15)
[2018-07-05] MEDS: Senna/Docusate Sodium 8.6/50 MG Tablet PO SCH ×2 (09:29→20:26)
[2018-07-05] MEDS: Lactobacillus Acidophilus/L. Spores Tablet PO SCH ×3 (09:30→19:12)
[2018-07-05] MEDS: oxyCODONE/Acetaminophen 10/325 Tablet PO PRN ×2 (12:09→20:29)
[2018-07-05] MEDS: HYDROmorphone PF Inj 0.5 MG/0.5 ML Syringe IV.PUSH PRN (15:19)
--- NOTE | 2018-07-05 17:17 | P.CONID ---
History of Present Illness Service: ID Consult date: 07/05/18 Requesting Physician: Maida Tapia Reason for Consult: liver abscess Primary Care Provider: UNKNOWN Chief Complaint: right leg pain History of Present Illness: 33 yo male with no past med history from [place](last time was in [place] 3-4 years ago) got sick about 4 weeks ago Diagnosed with flu with + flu test teated with [place]fu, fever and chills resolved after he finished but he developped a severe R LE pain which was getting worse Apparently tried multiple pain medx, but pain got progressively worse and he presented today to the hospital WBC @ [address] which showed solitray mass suspicious for liver abscess no abdominal pain, no vomiting , no diarrhea MR of the L spine w/o abscess Pt is on zosyn, vancomycin Review of Systems All other systems reviewed negative except as stated in HPI Constitutional: Reports anorexia PMFSH - History History Provided By: Patient - Medical / Surgical Hx Neg / Unobtainable Medical Problems Denied: Yes - Medical History Medical History: Medical History (Last Reviewed 07/05/18 @ 17:15 by Latricia Mon MD) Flu Ingrown right big toenail Patient denies medical problems - Surgical History Surgical History: Surgical History (Last Reviewed 07/05/18 @ 17:15 by Ltaricia Mon MD) No history of previous surgery - Family History Family History: Family History (Last Reviewed 07/05/18 @ 17:15 by Latricia Mon MD) Other No pertinent family history - Social History I have reviewed the patient's Social History: Yes - Tobacco History Second Hand Smoke Exposure: No Tobacco Use In Past 30 Days: No Smoking Status: Never smoker - Alcohol History How Often Do You Have a Drink Containing Alcohol: Never - Substance Use History Substance History: No History of Abuse - Travel History Recent Travel in the [place] Within the Last 8 Weeks: No Recent Travel Out of the Country Within the Last 8 Weeks: No - Immunization History Tetanus Immunization: <5 Years Medications and Allergies Active Medications: Active Medications Al Hydroxide/Mg Hydroxide (Milk Of Magnesia Liq) 30 ml PO Q12H PRN PRN Reason: Mild Constipation Bisacodyl (Dulcolax Supp) 10 mg RECTAL DAILY PRN PRN Reason: SEVERE CONSITIPATION Hydromorphone HCl (Dilaudid Pf Inj) 0.5 mg IV.PUSH Q4H PRN PRN Reason: BREAKTHROUGH PAIN Last Admin: 07/05/18 15:19 Dose: 0.5 mg Sodium Chloride (Ns Inj) 1,000 mls @ 100 mls/hr IV.CONT .Q10H [facility] Stop: 07/06/18 18:00 Last Admin: 07/05/18 15:41 Dose: Not Given Vancomycin HCl 1,000 mg/ (Sodium Chloride) 250 mls @ 250 mls/hr IV.SIG Q12H [facility] Last Admin: 07/05/18 16:04 Dose: 250 mls/hr Piperacillin/Tazobactam/Dextrose (Zosyn 3.375 Gm Premix) 50 mls @ 100 mls/hr IV.SIG Q8H [facility] Last Infusion: 07/05/18 16:05 Dose: Infused Lactobacillus Acidophilus (Lactinex) 1 tab PO TID [facility] Last Admin: 07/05/18 15:41 Dose: Not Given Lactulose (Lactulose Liq) 30 ml PO DAILY PRN PRN Reason: SEVERE CONSITIPATION Naloxone HCl (Narcan Inj) 0.4 mg IV.PUSH UNSCH PRN PRN Reason: SEE LABEL COMMENTS Ondansetron HCl (Zofran Inj) 4 mg IV.PUSH Q6H PRN PRN Reason: NAUSEA OR VOMITING Oxycodone/Acetaminophen (Percocet 5/325 Mg) 1 tab PO Q4H PRN PRN Reason: Pain 3 to 6 Oxycodone/Acetaminophen (Percocet 10/325 Mg) 1 tab PO Q4H PRN PRN Reason: Pain 7 to 10 Last Admin: 07/05/18 12:09 Dose: 1 tab Senna/Docusate Sodium (Sonia-Colace) 1 tab PO BID [facility] Last Admin: 07/05/18 09:29 Dose: 1 tab Sennosides (Senokot) 17.2 mg PO Q12H PRN PRN Reason: Moderate Constipation Allergies Allergy/AdvReac Type Severity Reaction Status Date / Time No Known Allergies Allergy Verified 07/04/18 10:26 Home Medications Medication Instructions Recorded Confirmed Type cyclobenzaprine 10 mg PO TID 07/04/18 07/04/18 History diclofenac sodium 75 mg PO BID 07/04/18 07/04/18 History Exam Vital signs: Vital Signs 07/04/18 20:00 07/04/18 21:39 07/04/18 23:37 Temperature 98.3 F 98.2 F Pulse Rate 101 H 105 H Respiratory Rate 17 16 17 Blood Pressure 128/65 127/66 Pulse Oximetry 99 98 07/05/18 00:55 07/05/18 02:17 07/05/18 04:00 Temperature 98.3 F Pulse Rate 99 H Respiratory Rate 20 17 17 Blood Pressure 126/65 Pulse Oximetry 98 07/05/18 05:37 07/05/18 08:00 07/05/18 12:00 Temperature 99.3 F 100.5 F H Pulse Rate 104 H 113 H Respiratory Rate 20 22 20 Blood Pressure 140/68 130/68 Pulse Oximetry 100 96 07/05/18 16:00 Temperature 101.6 F H Pulse Rate 114 H Respiratory Rate 24 Blood Pressure 125/64 Pulse Oximetry 99 Intake & Output 07/04/18 07/05/18 07/05/18 18:59 06:59 18:59 Intake Total 1350 / 1350 1300 / 1300 100 / 100 Balance 1350 / 1350 1300 / 1300 100 / 100 Weight 55.338 kg 55.338 kg Intake: IV 1350 / 1350 1300 / 1300 100 / 100 NS Inj 1,000 ML @ 100 mls/hr IV 1000 / 1000 .CONT .Q10H [facility] Rx#:[id number] Zosyn 3.375 GM Premix 50 ML @ 50 / 50 100 / 100 100 mls/hr IV.SIG Q8H [facility] Rx#: [id number] Zosyn 4.5 GM Premix 4.5 gm In 100 / 100 100 ml @ 200 mls/hr IV.SIG ONCE ONE Rx#:[id number] NS Inj 1,000 ML @ 1000 mls/hr 1000 / 1000 IV.SIG BOLUS [facility] Rx#:[id number] Vancomycin Inj 1,000 MG In NS 250 / 250 250 / 250 Inj 250 ML @ 250 mls/hr IV.SIG Q12H [facility] Rx#:[id number] Other: Date of Last Bowel Movement 07/04/18 Weight On Admission 55.338 kg - Constitutional no acute distress, average body habitus - Routine HEENT Exam Head: Present: normocephalic, atraumatic Eye: Present: EOMI, PERRL. Absent: conjunctival icterus ENT: Present: mucous membranes moist, dentition normal - Routine Neck Exam Present: supple. Absent: lymphadenopathy - Routine Chest/Breast/Axilla Exam Axillae: Absent: lymphadenopathy - Routine Respiratory Exam Present: CTA bilaterally. Absent: decreased breath sounds, respiratory distress - Routine Cardiovascular Exam Present: RRR, S1, S2. Absent: murmur, gallop, rubs - Routine Abdominal Exam Present: soft, normoactive bowel sounds. Absent: tenderness, distended, organomegaly, mass - Routine Extremities Exam Absent: cyanosis, clubbing, edema, tenderness, joint swelling - Routine Back/Spine/Pelvis Exam Back/Spine: Absent: paraspinal tenderness, vertebral tenderness, scoliosis - Routine Skin Exam Present: intact. Absent: cyanosis, rash - Routine Neurological Exam Present: alert, oriented X3, CN II-XII intact. Absent: sensory deficit, motor deficit - Routine Psychiatric Exam Present: normal affect, normal thought process, cooperative Results - Labs CBC & Chem 7: 07/05/18 05:01 07/05/18 05:01 Labs: Laboratory Results - last 24 hr 07/04/18 07/05/18 07/05/18 11:19 05:01 05:01 WBC 23.1 H RBC 4.19 L Hgb 11.2 L Hct 34.0 L MCV 81.2 MCH 26.7 L MCHC 32.9 RDW 13.5 Plt Count 364 MPV 7.9 Neut % (Auto) 80.8 H Lymph % (Auto) 10.8 [place] % (Auto) 7.7 Eos % (Auto) 0.4 Baso % (Auto) 0.3 Neut # (Auto) 18.6 H Lymph # (Auto) 2.5 [place] # (Auto) 1.8 H Eos # (Auto) 0.1 Baso # (Auto) 0.1 WBC Differential . Differential Comment Auto diff final ESR Sodium 135 L 138 Potassium 3.6 4.2 Chloride 97 L 102 Carbon Dioxide 29.6 29.2 Anion Gap 8 7 BUN 22 H 21 H Creatinine 0.88 0.80 Estimated GFR Greater than 89 Greater than 89 Random Glucose 132 H 98 Calcium 8.9 8.5 Total Bilirubin 0.3 0.4 Direct Bilirubin 0.1 Indirect Bilirubin 0.2 AST 102 H 51 H ALT 333 H 211 H Alkaline Phosphatase 302 H 242 H C-Reactive Protein 17.10 H Total Protein 8.5 H 7.3 D Albumin 2.8 L 2.4 L Hepatitis A IgM Ab Hep Bs Antigen Hep B Core IgM Ab Hep C IgG Ab 07/05/18 07/05/18 05:01 05:01 WBC RBC Hgb Hct MCV MCH MCHC RDW Plt Count MPV Neut % (Auto) Lymph % (Auto) [place] % (Auto) Eos % (Auto) Baso % (Auto) Neut # (Auto) Lymph # (Auto) [place] # (Auto) Eos # (Auto) Baso # (Auto) WBC Differential Differential Comment ESR 68 H Sodium Potassium Chloride Carbon Dioxide Anion Gap BUN Creatinine Estimated GFR Random Glucose Calcium Total Bilirubin Direct Bilirubin Indirect Bilirubin AST ALT Alkaline Phosphatase C-Reactive Protein Total Protein Albumin Hepatitis A IgM Ab Nonreactive Hep Bs Antigen Nonreactive Hep B Core IgM Ab Nonreactive Hep C IgG Ab Nonreactive - Imaging Lumbar Spine MRI 07/04/18 10:49 CONCLUSION: 1. Minimal degenerative disc disease at L4-5 and L5-S1 without central canal stenosis. 2. Minimal caudal right neural foraminal narrowing at L5-S1 without evidence for impingement. 3. No abnormal enhancement. Chest X-Ray 07/04/18 11:54 CONCLUSION: No acute cardiopulmonary process. Abdomen/Pelvis CT 07/04/18 14:04 CONCLUSION: 1. 4.9 x 3.6 x 3.4 cm peripherally enhancing low density mass in segment 8 of the liver extending to the dome. This lesion is most concerning for liver abscess. Less likely differential consideration includes hepatic mass. Assessment and Plan - Plan Solitary liver abscess in young pt, immigrant from [place] fever, leukocytosis 4.9 x 3.6 x 3.4 cm peripherally enhancing low density mass in segment 8 of the liver extending to the dome. This lesion is most concerning for liver abscess R LE pain - charissa referred, from L spinal DJD no infection on MRI - cont zosyn - chk Entameba serologies agree with plan for bx of the abscess for culture
[2018-07-05] MEDS ORDERED: Ibuprofen 600 MG Tablet PO ONE (19:35)
[2018-07-06] MEDS: Vancomycin Inj 1,000 MG in Sodium Chlor 0.9% Inj 250 ML IV.SIG SCH (04:18)
[2018-07-06 08:14] LABS: Baso % (Auto) 0.1 % (0.0-2.0); Eos # (Auto) 0.1 th/mm3 (0.0-0.4); Eos % (Auto) 0.3 % (0.0-4.0); Hematocrit 33.9 % (39.0-51.0); Hemoglobin 11.3 gm/dL (13.0-17.0); Lymph # (Auto) 2.6 th/mm3 (1.0-4.8); Lymph % (Auto) 10.4 % (9.0-44.0); Mean Corpuscular HGB Conc 33.2 % (32.0-36.0); Mean Corpuscular Hemoglobin 27.5 pg (27.0-34.0); Mean Corpuscular Volume 82.9 fL (80.0-100.0); Mean Platelet Volume 7.8 fL (7.0-11.0); Mono # (Auto) 1.8 th/mm3 (0.0-0.9); Mono % (Auto) 7.3 % (0.0-8.0); Neut # (Auto) 20.4 th/mm3 (1.8-7.7); Neut % (Auto) 81.9 % (16.0-70.0); Platelet Count 335 th/mm3 (150-450); Red Blood Count 4.09 mil/mm3 (4.50-5.90); White Blood Count 24.9 th/mm3 (4.0-11.0)
[2018-07-06 08:28] LABS: Alanine Aminotransferase 164 U/L (12-78); Albumin 2.3 g/dL (3.4-5.0); Anion Gap 5 meq/L (5-15); Aspartate Aminotransferase 39 U/L (15-37); Blood Urea Nitrogen 13 mg/dL (7-18); Carbon Dioxide 30.8 meq/L (21.0-32.0); Chloride 103 meq/L (98-107); Glomerular Filtration Rate Greater Than 89 mL/min (>89); Glucose,Random 109 mg/dL (74-106); Potassium 4.4 meq/L (3.5-5.1); Sodium 139 meq/L (136-145)
[2018-07-06 08:30] LABS: Alkaline Phosphatase 299 U/L (45-117); Total Protein 7.3 g/dL (6.4-8.2)
[2018-07-06] MEDS: Piperacil/Tazo 3.375 GM Premix 50 ML IV.SIG SCH ×3 (08:40→23:38)
[2018-07-06] MEDS: Senna/Docusate Sodium 8.6/50 MG Tablet PO SCH ×2 (08:40→20:11)
[2018-07-06] MEDS: Lactobacillus Acidophilus/L. Spores Tablet PO SCH ×3 (08:40→17:50)
--- NOTE | 2018-07-06 10:25 | P.PNIM ---
Subjective Interval history: Liver biopsy has been recommended by ID. Febrile symptoms remain but measurable fevers have dissipated. Downward trending white blood cell count. Patient is apprehensive about needle procedure, but understands the necessity. Pain is better controlled on Percocet. Physical Exam Vital signs: Vital Signs 07/05/18 12:00 07/05/18 16:00 07/05/18 19:16 Temperature 100.5 F H 101.6 F H 101.4 F H Pulse Rate 113 H 114 H 123 H Respiratory Rate 20 24 16 Blood Pressure 130/68 125/64 127/61 Pulse Oximetry 96 99 99 07/06/18 00:00 07/06/18 03:59 07/06/18 07:44 Temperature 97.8 F 98.0 F 98.7 F Pulse Rate 92 H 79 92 H Respiratory Rate 16 16 16 Blood Pressure 100/62 104/60 122/63 Pulse Oximetry 98 98 99 Intake & Output 07/05/18 07/06/18 07/06/18 18:59 06:59 18:59 Intake Total 1600 / 1600 300 / 300 50 / 50 Balance 1600 / 1600 300 / 300 50 / 50 Intake: IV 1350 / 1350 300 / 300 50 / 50 NS Inj 1,000 ML @ 100 mls/hr IV 1000 / 1000 .CONT .Q10H [facility] Rx#:[id number] Zosyn 3.375 GM Premix 50 ML @ 100 / 100 50 / 50 50 / 50 100 mls/hr IV.SIG Q8H [facility] Rx#: [id number] Vancomycin Inj 1,000 MG In NS 250 / 250 250 / 250 Inj 250 ML @ 250 mls/hr IV.SIG Q12H [facility] Rx#:[id number] Oral 250 / 250 Other: # Voids 4 4 Date of Last Bowel Movement 07/04/18 07/04/18 07/04/18 Narrative: GENERAL: NAD, A&Ox3 HEAD: Normocephalic. NECK: Supple, trachea midline. No lymphadenopathy. EYES: No scleral icterus. No injection or drainage. CARDIOVASCULAR: Regular rate and rhythm without murmurs, gallops, or rubs. RESPIRATORY: Breath sounds equal bilaterally. No accessory muscle use. GASTROINTESTINAL: Abdomen soft, nondistended. Diffusely tender abdomen MUSCULOSKELETAL: No cyanosis, or edema. SKIN: Warm and dry. NEURO: No focal neurological deficits. Results - Labs CBC & Chem 7: 11/27/18 06:45 07/06/18 06:45 Laboratory Results - last 24 hr 07/05/18 07/06/18 07/06/18 20:01 06:45 06:45 WBC 24.9 H RBC 4.09 L Hgb 11.3 L Hct 33.9 L MCV 82.9 MCH 27.5 MCHC 33.2 RDW 14.0 Plt Count 335 MPV 7.8 Neut % (Auto) 81.9 H Lymph % (Auto) 10.4 [place] % (Auto) 7.3 Eos % (Auto) 0.3 Baso % (Auto) 0.1 Neut # (Auto) 20.4 H Lymph # (Auto) 2.6 [place] # (Auto) 1.8 H Eos # (Auto) 0.1 Baso # (Auto) 0.0 WBC Differential . Differential Comment Auto diff final Sodium 139 Potassium 4.4 Chloride 103 Carbon Dioxide 30.8 Anion Gap 5 BUN 13 Creatinine 0.82 Estimated GFR Greater than 89 Random Glucose 109 H Lactic Acid 0.9 Calcium 9.0 Total Bilirubin 0.5 AST 39 H ALT 164 H Alkaline Phosphatase 299 H Total Protein 7.3 Albumin 2.3 L Microbiology 07/04/18 14:14 Blood - Peripheral Aerobic Blood Culture - Preliminary No growth in 1 day 07/04/18 14:14 Blood - Peripheral Anaerobic Blood Culture - Preliminary No growth in 1 day 07/04/18 14:19 Blood - Peripheral Aerobic Blood Culture - Preliminary No growth in 1 day 07/04/18 14:19 Blood - Peripheral Anaerobic Blood Culture - Preliminary No growth in 1 day Assessment and Plan - Assessment (1) Sepsis Code(s): A41.9 - Sepsis, unspecified organism Status: Acute (2) Abscess of liver Code(s): K75.0 - Abscess of liver Status: Acute (3) Sciatica Code(s): M54.30 - Sciatica, unspecified side Status: Acute - Plan 33 years old Yong male with no known past medical history admitted secondary to fluid-filled liver lesion suspicious for liver abscess with sepsis. Plan for IR drainage of suspected liver abscess. Continue Percocet for pain control, working well. Ativan as needed for anxiety at time of procedure. Sepsis Tachycardia Improving, not resolved Follow vitals closely Treat infection as listed below Leukocytosis Liver Abcess Continue to monitor CBC Continue vancomycin Continue Zosyn ID following Continue IV hydration Will discuss with ID regarding drainage options, if necessary Transaminitis Likely secondary to liver fluid collection Slight improvement Follow LFTs Sciatic Pain May be indirectly related Continue pain treatments as needed Hold NSAIDs for possible procedure DVT Prophylaxis SCD's while in bed
[2018-07-06] MEDS: Sod Chloride 0.9% Inj 1,000 ML IV.CONT SCH (11:47)
[2018-07-06 13:02] LABS: INR 1.2 Ratio; Prothrombin Time 11.7 sec (9.8-11.6)
[2018-07-06] MEDS ORDERED: fentaNYL Citrate Inj 250 MCG/5 ML Ampul ONE (14:31)
[2018-07-06] MEDS: HYDROmorphone PF Inj 0.5 MG/0.5 ML Syringe IV.PUSH PRN (14:45)
--- NOTE | 2018-07-06 15:04 | P.PNID ---
Subjective Remarks: doing OK no fever last night some low grade temps but none today WBC stays @ 24.9 last travel to [place] 1 yr ago Antibiotics: zosyn vancomycin Past Medical History: none Allergies/Adverse Reactions: Allergies No Known Allergies Allergy (Verified 07/04/18 10:26) Objective Vital Signs 07/05/18 16:00 07/05/18 19:16 07/06/18 00:00 Temperature 101.6 F H 101.4 F H 97.8 F Pulse Rate 114 H 123 H 92 H Respiratory Rate 24 16 16 Blood Pressure 125/64 127/61 100/62 Pulse Oximetry 99 99 98 07/06/18 03:59 07/06/18 07:44 07/06/18 11:15 Temperature 98.0 F 98.7 F 98.8 F Pulse Rate 79 92 H 96 H Respiratory Rate 16 16 16 Blood Pressure 104/60 122/63 114/64 Pulse Oximetry 98 99 99 Intake & Output 07/05/18 07/06/18 07/06/18 18:59 06:59 18:59 Intake Total 1600 / 1600 300 / 300 50 / 50 Balance 1600 / 1600 300 / 300 50 / 50 Intake: IV 1350 / 1350 300 / 300 50 / 50 NS Inj 1,000 ML @ 100 mls/hr IV 1000 / 1000 .CONT .Q10H [facility] Rx#:[id number] Zosyn 3.375 GM Premix 50 ML @ 100 / 100 50 / 50 50 / 50 100 mls/hr IV.SIG Q8H [facility] Rx#: [id number] Vancomycin Inj 1,000 MG In NS 250 / 250 250 / 250 Inj 250 ML @ 250 mls/hr IV.SIG Q12H [facility] Rx#:[id number] Oral 250 / 250 Other: # Voids 4 4 Date of Last Bowel Movement 07/04/18 07/04/18 07/04/18 07/05/18 20:01 Blood - Peripheral Aerobic Blood Culture - Preliminary No growth in 1 day 07/05/18 20:01 Blood - Peripheral Anaerobic Blood Culture - Preliminary No growth in 1 day 07/05/18 19:56 Blood - Peripheral Aerobic Blood Culture - Preliminary No growth in 1 day 07/05/18 19:56 Blood - Peripheral Anaerobic Blood Culture - Preliminary No growth in 1 day 07/04/18 14:14 Blood - Peripheral Aerobic Blood Culture - Preliminary No growth in 2 days 07/04/18 14:14 Blood - Peripheral Anaerobic Blood Culture - Preliminary No growth in 2 days 07/04/18 14:19 Blood - Peripheral Aerobic Blood Culture - Preliminary No growth in 2 days 07/04/18 14:19 Blood - Peripheral Anaerobic Blood Culture - Preliminary No growth in 2 days Lab - Hematology Results 07/04/18 07/05/18 07/05/18 14:19 05:01 05:01 WBC 23.1 H RBC 4.19 L Hgb 11.2 L Hct 34.0 L MCV 81.2 MCH 26.7 L MCHC 32.9 RDW 13.5 Plt Count 364 MPV 7.9 Neut % (Auto) 80.8 H Lymph % (Auto) 10.8 [place] % (Auto) 7.7 Eos % (Auto) 0.4 Baso % (Auto) 0.3 Neut # (Auto) 18.6 H Lymph # (Auto) 2.5 [place] # (Auto) 1.8 H Eos # (Auto) 0.1 Baso # (Auto) 0.1 WBC Differential . Differential Comment Auto diff final ESR 21 H 68 H 07/06/18 06:45 WBC 24.9 H RBC 4.09 L Hgb 11.3 L Hct 33.9 L MCV 82.9 MCH 27.5 MCHC 33.2 RDW 14.0 Plt Count 335 MPV 7.8 Neut % (Auto) 81.9 H Lymph % (Auto) 10.4 [place] % (Auto) 7.3 Eos % (Auto) 0.3 Baso % (Auto) 0.1 Neut # (Auto) 20.4 H Lymph # (Auto) 2.6 [place] # (Auto) 1.8 H Eos # (Auto) 0.1 Baso # (Auto) 0.0 WBC Differential . Differential Comment Auto diff final ESR Lab - Chemistry Results 07/04/18 07/04/18 07/04/18 11:19 14:19 14:19 Sodium 135 L Potassium 3.6 Chloride 97 L Carbon Dioxide 29.6 Anion Gap 8 BUN 22 H Creatinine 0.88 Estimated GFR Greater than 89 Random Glucose 132 H Lactic Acid 1.1 Calcium 8.9 Total Bilirubin 0.3 Direct Bilirubin 0.1 Indirect Bilirubin 0.2 AST 102 H ALT 333 H Alkaline Phosphatase 302 H C-Reactive Protein 22.70 H Total Protein 8.5 H Albumin 2.8 L 07/05/18 07/05/18 07/06/18 05:01 20:01 06:45 Sodium 138 139 Potassium 4.2 4.4 Chloride 102 103 Carbon Dioxide 29.2 30.8 Anion Gap 7 5 BUN 21 H 13 Creatinine 0.80 0.82 Estimated GFR Greater than 89 Greater than 89 Random Glucose 98 109 H Lactic Acid 0.9 Calcium 8.5 9.0 Total Bilirubin 0.4 0.5 Direct Bilirubin Indirect Bilirubin AST 51 H 39 H ALT 211 H 164 H Alkaline Phosphatase 242 H 299 H C-Reactive Protein 17.10 H Total Protein 7.3 D 7.3 Albumin 2.4 L 2.3 L Imaging: ITS Impressions Lumbar Spine MRI 07/04/18 10:49 CONCLUSION: 1. Minimal degenerative disc disease at L4-5 and L5-S1 without central canal stenosis. 2. Minimal caudal right neural foraminal narrowing at L5-S1 without evidence for impingement. 3. No abnormal enhancement. Chest X-Ray 07/04/18 11:54 CONCLUSION: No acute cardiopulmonary process. Abdomen/Pelvis CT 07/04/18 14:04 CONCLUSION: 1. 4.9 x 3.6 x 3.4 cm peripherally enhancing low density mass in segment 8 of the liver extending to the dome. This lesion is most concerning for liver abscess. Less likely differential consideration includes hepatic mass. Physical Exam: GENERAL: NAD SKIN: Warm and dry. HEAD: Atraumatic. Normocephalic. EYES: Pupils equal and round. No scleral icterus. No injection or drainage. ENT: No nasal bleeding or discharge. Mucous membranes pink and moist. NECK: Trachea midline. No JVD. CARDIOVASCULAR: Regular rate and rhythm. RESPIRATORY: No accessory muscle use. Clear to auscultation. Breath sounds equal bilaterally. GASTROINTESTINAL: Abdomen soft, non-tender, nondistended. Hepatic and splenic margins not palpable. MUSCULOSKELETAL: Extremities without clubbing, cyanosis, or edema. No obvious deformities. Painful RLE AROM NEUROLOGICAL: Awake and alert. No obvious cranial nerve deficits. Motor grossly within normal limits. Five out of 5 muscle strength in the arms and legs. Normal speech. PSYCHIATRIC: Appropriate mood and affect; insight and judgment normal. Assessment and Plan - Plan Solitary liver abscess in young pt, immigrant from [place] fever, leukocytosis 4.9 x 3.6 x 3.4 cm peripherally enhancing low density mass in segment 8 of the liver extending to the dome. 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
[2018-07-06] MEDS ORDERED: fentaNYL Citrate Inj 100 MCG/2 ML Ampul ONE (16:26)
--- NOTE | 2018-07-06 16:59 | P.RAD ---
Post CT Procedure Prog Note - Pre Procedure Diagnosis (1) Abscess of liver - Post Procedure Diagnosis (1) Abscess of liver - Procedure Information Procedure Date: 07/06/18 Supervising Radiologist: Ihsan Haddad Jr, MD Estimated blood loss (mL): 0 Anesthesia: Conscious Sedation - Plan of Activity Patient to Unit: ROPU Patient condition: Good See PACS Report for procedural detail/treatment. Drainage Procedure CT Abscess Drainage Placement [place] Tube Size: 10 Fluid Description: Purulent Findings: Hepatic abscess high in dome of right lobe of liver. Successful CT drain placement with 5mL of thick purulent fluid obtained. Sample to lab as requested.
[2018-07-06] MEDS ORDERED: Lidocaine 1%/Epinephrine 1:100,000 Inj 20 ML Vial I-DERMAL ONE (17:37)
--- NOTE | 2018-07-06 18:04 | CT ---
EXAM DATE: 07/06/2018 5:34 PM EST AGE/SEX: 33 years / Male INDICATIONS: Liver abscess CLINICAL DATA: This is the patient's initial encounter. Patient reports that signs and symptoms have been present for 1 day and indicates a pain score of 5/10. MEDICAL/SURGICAL HISTORY: None. None. COMPARISON: No prior exams available for comparison. SEDATION TIME (min): 30 BIOPSY SITE: LIVER MEDICATION(S): 6 MG midazolam (Versed) IV 300 fentanyl (Sublimaze) IV DEVICE(S): 10 Fr Skater FLUID: Total volume of 5 of clear, yellow fluid was removed. Fluid was sent to lab for ordered studies.. . . PROCEDURE : CT guided drainage of the LIVER. The patient has an intrahepatic abscess involving the dome of the liver within segment 8. This was ta rgeted during the drainage. The risks, benefits and alternatives to the procedure were explained and verbal and written consent was obtained. Using automated exposure control and adjustment of the mA an d/or kV according to patient size, radiation dose was kept as low as reasonably achievable to obtain optimal diagnostic quality images. The site was prepped in sterile fashion. Full sterile technique was used, including cap, mask, sterile gloves and gown and a large sterile sheet. Hand hygiene and 2% chlorhexidine and/or betadine/alcohol prep was utilized per protocol for cutaneous antisepsis. Th e skin and subcutaneous tissues were infiltrated with local anesthetic solution. DICOM format image data is available electronically for review and comparison. Using CT guidance the prescribed site was localized. Drainage was performed using the prescribed cat heter. 5 mL of purulent material was aspirated. An accordion drain was utilized. The catheter was sut ured in place. The patient tolerated the procedure well and there were no complications. The patient tolerated the procedure well and there were no complications. The patient was sent to post anesthesia recovery in s table condition. CONCLUSION: 1. Uncomplicated CT guided drainage of an intrahepatic abscess with 5 mL of pus obtained. This was s ent for culture.. Electronically signed by: Ihsan Haddad MD 07/06/2018 6:02 PM EST
[2018-07-07] MEDS: HYDROmorphone PF Inj 0.5 MG/0.5 ML Syringe IV.PUSH PRN ×3 (03:16→16:44)
[2018-07-07] MEDS: Piperacil/Tazo 3.375 GM Premix 50 ML IV.SIG SCH ×2 (07:51→16:45)
[2018-07-07] MEDS: Senna/Docusate Sodium 8.6/50 MG Tablet PO SCH ×2 (10:22→20:16)
[2018-07-07] MEDS: Lactobacillus Acidophilus/L. Spores Tablet PO SCH ×3 (10:22→18:38)
--- NOTE | 2018-07-07 11:17 | P.PNIM ---
Subjective Interval history: Successful procedure yesterday. Cultures pending. Drain remains in place. Patient has pain control. No new complaints today. Physical Exam Vital signs: Vital Signs 07/06/18 17:00 07/06/18 17:15 07/06/18 17:32 Temperature 100.4 F H Pulse Rate 115 H 109 H 105 H Respiratory Rate 18 18 18 Blood Pressure 158/83 H 162/81 H 158/83 H Pulse Oximetry 96 95 95 07/06/18 18:11 07/06/18 19:19 07/06/18 23:10 Temperature 99.9 F H 99.6 F 99.7 F H Pulse Rate 110 H 114 H 97 H Respiratory Rate 16 20 16 Blood Pressure 134/79 130/72 124/66 Pulse Oximetry 96 96 96 07/07/18 01:44 07/07/18 03:14 07/07/18 08:00 Temperature 100.1 F H 98.8 F Pulse Rate 106 H 95 H Respiratory Rate 16 20 16 Blood Pressure 128/68 123/70 Pulse Oximetry 95 98 Intake & Output 07/06/18 07/07/18 07/07/18 18:59 06:59 18:59 Intake Total 850 / 850 1050 / 1050 50 / 50 Output Total 1200 / 1200 Balance -350 / -350 1050 / 1050 50 / 50 Intake: IV 100 / 100 1050 / 1050 50 / 50 NS Inj 1,000 ML @ 100 mls/hr IV 1000 / 1000 .CONT .Q10H [facility] Rx#:[id number] Zosyn 3.375 GM Premix 50 ML @ 100 / 100 50 / 50 50 / 50 100 mls/hr IV.SIG Q8H [facility] Rx#: [id number] Oral 750 / 750 Output: Urine 1200 / 1200 Other: Date of Last Bowel Movement 07/04/18 Narrative: GENERAL: NAD, A&Ox3 HEAD: Normocephalic. NECK: Supple, trachea midline. No lymphadenopathy. EYES: No scleral icterus. No injection or drainage. CARDIOVASCULAR: Regular rate and rhythm without murmurs, gallops, or rubs. RESPIRATORY: Breath sounds equal bilaterally. No accessory muscle use. GASTROINTESTINAL: Abdomen soft, nondistended. Diffusely tender abdomen abscess drain in place anterior right abdomen. MUSCULOSKELETAL: No cyanosis, or edema. SKIN: Warm and dry. NEURO: No focal neurological deficits. Results - Labs CBC & Chem 7: 07/06/18 06:45 07/06/18 06:45 Laboratory Results - last 24 hr 07/06/18 07/06/18 12:38 12:38 PT 11.7 H INR 1.2 APTT 33.0 H Microbiology 07/05/18 20:01 Blood - Peripheral Aerobic Blood Culture - Preliminary No growth in 2 days 07/05/18 20:01 Blood - Peripheral Anaerobic Blood Culture - Preliminary gram negative rods 07/05/18 19:56 Blood - Peripheral Aerobic Blood Culture - Preliminary No growth in 2 days 07/05/18 19:56 Blood - Peripheral Anaerobic Blood Culture - Preliminary No growth in 2 days 07/04/18 14:14 Blood - Peripheral Aerobic Blood Culture - Preliminary No growth in 3 days 07/04/18 14:14 Blood - Peripheral Anaerobic Blood Culture - Preliminary No growth in 3 days 07/04/18 14:19 Blood - Peripheral Aerobic Blood Culture - Preliminary No growth in 3 days 07/04/18 14:19 Blood - Peripheral Anaerobic Blood Culture - Preliminary No growth in 3 days 07/06/18 16:45 Fluid - Other Gram Stain - Final - Imaging Impressions Abscess Drainage CT 07/06/18 00:00 CONCLUSION: 1. Uncomplicated CT guided drainage of an intrahepatic abscess with 5 mL of pus obtained. This was sent for culture.. Assessment and Plan - Assessment (1) Sepsis Code(s): A41.9 - Sepsis, unspecified organism Status: Acute (2) Abscess of liver Code(s): K75.0 - Abscess of liver Status: Acute (3) Sciatica Code(s): M54.30 - Sciatica, unspecified side Status: Acute - Plan 33 years old Yong male with no known past medical history admitted secondary to fluid-filled liver lesion suspicious for liver abscess with sepsis. IR drainage yesterday. Follow cultures. Monitor output drain at right abdomen. Sepsis Tachycardia Improving, not resolved Follow vitals closely Treat infection as listed below Leukocytosis Liver Abcess Continue to monitor CBC Continue vancomycin Continue Zosyn ID following Continue IV hydration Will discuss with ID regarding drainage options, if necessary Transaminitis Likely secondary to liver fluid collection Slight improvement Follow LFTs Sciatic Pain May be indirectly related Continue pain treatments as needed Hold NSAIDs for possible procedure DVT Prophylaxis SCD's while in bed
[2018-07-08] MEDS: Piperacil/Tazo 3.375 GM Premix 50 ML IV.SIG SCH ×5 (01:02→23:46)
[2018-07-08] MEDS: HYDROmorphone PF Inj 0.5 MG/0.5 ML Syringe IV.PUSH PRN (01:09)
[2018-07-08] MEDS: Lactobacillus Acidophilus/L. Spores Tablet PO SCH ×3 (10:19→18:05)
[2018-07-08] MEDS: Senna/Docusate Sodium 8.6/50 MG Tablet PO SCH ×2 (10:19→21:47)
--- NOTE | 2018-07-08 10:22 | P.PNIM ---
Subjective Interval history: Patient reports tolerating diet. No nausea or vomiting. No chills or fever. Feels better after liver drainage yesterday. No bowel movement overnight. No abdominal pain at this time. Physical Exam Vital signs: Last Vital Signs Temp 98.2 F 07/08/18 08:00 Pulse 88 07/08/18 08:00 Resp 20 07/08/18 08:00 BP 122/70 07/08/18 08:00 Pulse Ox 97 07/08/18 08:00 Intake & Output 07/06/18 07/07/18 07/08/18 07/09/18 06:59 06:59 06:59 06:59 Intake Total 1900 / 1900 1900 / 1900 1150 / 1150 120 / 120 Output Total 1200 / 1200 Balance 1900 / 1900 700 / 700 1150 / 1150 120 / 120 Weight 72.2 kg Narrative: GENERAL: Well-nourished well-developed male in no acute distress HEAD: Normocephalic. CARDIOVASCULAR: Regular rate and rhythm without murmurs, gallops, or rubs. RESPIRATORY: Breath sounds equal bilaterally. No accessory muscle use. GASTROINTESTINAL: Abdomen soft, nondistended. Soft nontender, abscess drain in place anterior right abdomen. MUSCULOSKELETAL: No cyanosis, or edema. SKIN: Warm and dry. NEURO: No focal neurological deficits. Results Labs CBC & Chem 7: 07/06/18 06:45 07/06/18 06:45 Labs: Microbiology 07/06/18 16:45 Fluid - Other Gram Stain - Final 07/06/18 16:45 Fluid - Other Body Fluid Culture - Final Klebsiella pneumoniae 07/04/18 14:14 Blood - Peripheral Aerobic Blood Culture - Preliminary No growth in 3 days 07/04/18 14:14 Blood - Peripheral Anaerobic Blood Culture - Preliminary gram positive cocci 07/05/18 20:01 Blood - Peripheral Aerobic Blood Culture - Preliminary No growth in 2 days 07/05/18 20:01 Blood - Peripheral Anaerobic Blood Culture - Preliminary gram negative rods 07/05/18 19:56 Blood - Peripheral Aerobic Blood Culture - Preliminary No growth in 2 days 07/05/18 19:56 Blood - Peripheral Anaerobic Blood Culture - Preliminary No growth in 2 days 07/04/18 14:19 Blood - Peripheral Aerobic Blood Culture - Preliminary No growth in 3 days 07/04/18 14:19 Blood - Peripheral Anaerobic Blood Culture - Preliminary No growth in 3 days Procedures Procedures: 1127percutaneous liver abscess drainage placement Assessment and Plan Plan 33-year-old Yong male with known known past medical history admitted secondary to fluid-filled liver lesion suspicious for liver abscess with sepsis Sepsis present on admission with leukocytosis and tachycardia due to source of liver abscess. This is clinically improving and currently on IV Zosyn and following up with cultures. No fevers overnight. Liver abscess status post percutaneous drainage with IR Continue with Zosyn, infectious disease following. cultures from liver drainage shows gram-negative rods. Repeat CBC to see if leukocytosis is trending down. Entamena serologies pending Lyme titer are currently pending Transaminitis -this is likely due to liver fluid collection and abscess, levels have trended down during the hospitalization. Hepatitis panel negative, mono screen negative, HIV nonreactive Right lower extremity/sciatic pain -she has not had further complaints during this hospitalization this may be an direct leg related to liver fluid and abscess. MRI shows no active infection. DVT prophylaxisSCDs Progress Note: Quality VTE Deep Vein Thrombosis/Pulmonary Embolism Present on Admission: No
[2018-07-08] MEDS ORDERED: Cathflo Activase Inj 2 MG Vial ONE (14:12)
[2018-07-08 23:52] LABS: Lyme Ab 18KD IgG WB NON-REACTIVE; Lyme Ab 23KD IgG WB NON-REACTIVE; Lyme Ab 23KD IgM WB NON-REACTIVE; Lyme Ab 28KD IgG WB REACTIVE; Lyme Ab 30KD IgG WB NON-REACTIVE; Lyme Ab 39KD IgG WB NON-REACTIVE; Lyme Ab 39KD IgM WB NON-REACTIVE; Lyme Ab 41KD IgG WB NON-REACTIVE; Lyme Ab 41KD IgM WB REACTIVE; Lyme Ab 45KD IgG WB NON-REACTIVE; Lyme Ab 58KD IgG WB NON-REACTIVE; Lyme Ab 66KD IgG WB NON-REACTIVE; Lyme Ab 93KD IgG WB NON-REACTIVE
[2018-07-09] MEDS: Piperacil/Tazo 3.375 GM Premix 50 ML IV.SIG SCH ×3 (05:14→18:37)
[2018-07-09 07:27] LABS: Baso # (Auto) 0.1 th/mm3 (0.0-0.2); Baso % (Auto) 0.4 % (0.0-2.0); Eos # (Auto) 0.2 th/mm3 (0.0-0.4); Hematocrit 33.4 % (39.0-51.0); Hemoglobin 11.3 gm/dL (13.0-17.0); Lymph # (Auto) 2.2 th/mm3 (1.0-4.8); Lymph % (Auto) 14.8 % (9.0-44.0); Mean Corpuscular HGB Conc 33.7 % (32.0-36.0); Mean Corpuscular Hemoglobin 27.2 pg (27.0-34.0); Mean Corpuscular Volume 80.6 fL (80.0-100.0); Mean Platelet Volume 7.4 fL (7.0-11.0); Mono # (Auto) 0.9 th/mm3 (0.0-0.9); Mono % (Auto) 6.2 % (0.0-8.0); Neut # (Auto) 11.8 th/mm3 (1.8-7.7); Neut % (Auto) 77.6 % (16.0-70.0); Platelet Count 424 th/mm3 (150-450); Red Blood Count 4.14 mil/mm3 (4.50-5.90); Red Cell Distribution Width 13.7 % (11.6-17.2); White Blood Count 15.2 th/mm3 (4.0-11.0)
[2018-07-09] MEDS: Lactobacillus Acidophilus/L. Spores Tablet PO SCH ×3 (09:17→18:37)
[2018-07-09] MEDS: Senna/Docusate Sodium 8.6/50 MG Tablet PO SCH ×2 (09:17→22:42)
--- NOTE | 2018-07-09 16:43 | P.PNIM ---
Subjective Interval history: Patient complains of some pain near the drainage site. No other complaints. He is happy that his symptoms are improving. Physical Exam Vital signs: Vital Signs 07/08/18 20:00 07/09/18 00:00 07/09/18 04:00 Temperature 98.8 F 99.7 F H 97.0 F L Pulse Rate 101 H 96 H 95 H Respiratory Rate 20 20 20 Blood Pressure 121/63 119/63 120/67 Pulse Oximetry 98 97 97 07/09/18 08:00 07/09/18 12:00 07/09/18 16:00 Temperature 98.2 F 98.8 F 98.3 F Pulse Rate 101 H 88 Respiratory Rate 16 16 20 Blood Pressure 119/72 126/71 148/67 H Pulse Oximetry 95 99 98 Intake & Output 07/08/18 07/09/18 07/09/18 18:59 06:59 18:59 Intake Total 220 / 220 420 / 420 50 / 50 Output Total 50 / 50 20 / 20 Balance 170 / 170 400 / 400 50 / 50 Intake: IV 100 / 100 100 / 100 50 / 50 Zosyn 3.375 GM Premix 50 ML @ 100 / 100 100 / 100 50 / 50 100 mls/hr IV.SIG Q6HR [facility] Rx#: [id number] Oral 120 / 120 320 / 320 Output: Wound Drainage 50 / 50 20 / 20 Right Upper Abdomen Pigtail 50 / 50 20 / 20 Other: # Voids 5 2 Date of Last Bowel Movement 07/04/18 07/08/18 # Bowel Movements 1 Narrative: Patient complains of some abdominal pain near the drain site. S1S2, no murmurs. CTA B/L soft, nontender, nondistended, drain right side abd present with bloody drainage in bag\ no edema of exts no neuro deficits. Results - Labs CBC & Chem 7: 07/09/18 06:50 07/06/18 06:45 Laboratory Results - last 24 hr 07/06/18 07/09/18 12:38 06:50 WBC 15.2 H RBC 4.14 L Hgb 11.3 L Hct 33.4 L MCV 80.6 MCH 27.2 MCHC 33.7 RDW 13.7 Plt Count 424 MPV 7.4 Neut % (Auto) 77.6 H Lymph % (Auto) 14.8 [place] % (Auto) 6.2 Eos % (Auto) 1.0 Baso % (Auto) 0.4 Neut # (Auto) 11.8 H Lymph # (Auto) 2.2 [place] # (Auto) 0.9 Eos # (Auto) 0.2 Baso # (Auto) 0.1 WBC Differential . Differential Comment Auto diff final Lyme IgG (Western Blot) Negative Lyme IgG 18 kDa Band Non-reactive Lyme IgG 23 kDa Band Non-reactive Lyme IgG 28 kDa Band Reactive Lyme IgG 30 kDa Band Non-reactive Lyme IgG 39 kDa Band Non-reactive Lyme IgG 41 kDa Band Non-reactive Lyme IgG 45 kDa Band Non-reactive Lyme IgG 58 kDa Band Non-reactive Lyme IgG 66 kDa Band Non-reactive Lyme IgG 93 kDa Band Non-reactive Lyme IgM (Western Blot) Negative Lyme IgM 23 kDa Band Non-reactive Lyme IgM 39 kDa Band Non-reactive Lyme IgM 41 kDa Band Reactive Microbiology 07/05/18 20:01 Blood - Peripheral Aerobic Blood Culture - Preliminary No growth in 4 days 07/05/18 20:01 Blood - Peripheral Anaerobic Blood Culture - Final Klebsiella pneumoniae 07/05/18 19:56 Blood - Peripheral Aerobic Blood Culture - Preliminary No growth in 4 days 07/05/18 19:56 Blood - Peripheral Anaerobic Blood Culture - Preliminary No growth in 4 days 07/04/18 14:14 Blood - Peripheral Aerobic Blood Culture - Final No growth in 5 days 07/04/18 14:14 Blood - Peripheral Anaerobic Blood Culture - Preliminary Staphylococcus coag negative 07/04/18 14:19 Blood - Peripheral Aerobic Blood Culture - Final No growth in 5 days 07/04/18 14:19 Blood - Peripheral Anaerobic Blood Culture - Final No growth in 5 days - Procedures 1127percutaneous liver abscess drainage placement Assessment and Plan - Assessment (1) Sepsis Code(s): A41.9 - Sepsis, unspecified organism Status: Acute (2) Abscess of liver Code(s): K75.0 - Abscess of liver Status: Acute (3) Sciatica Code(s): M54.30 - Sciatica, unspecified side Status: Acute - Plan This patient is a 33-year-old Yong male with no known past significant medical history who was admitted due to sepsis secondary to a liver abscess. 1. Sepsis present on admission secondary to liver abscess. 2. Transaminitis The patient initially presented with fevers, leukocytosis. Abdominal imaging showed a liver abscess. Patient is status post percutaneous drainage of the liver abscess by interventional radiology. Patient is currently on IV Zosyn. Infectious disease is following the patient. Cultures from the drainage show Klebsiella. Drain is still in place. Will discuss with IR about drain removal. WBC count is downtrending to 15,000 today. Continue pain medications as needed. We will titrate the patient off of IV pain meds. LFTs are also significantly improving, this is likely secondary to the acute infection in the liver. Hepatitis screen is negative, HIV nonreactive, Lyme serology negative, Entamoeba serology negative. 3. Sciatic pain Improved. No significant complaints with the patient today. He says after the drainage of the liver abscess his symptoms began to improve. Patient currently on SCDs for DVT prophylax.
--- NOTE | 2018-07-09 18:45 | P.PNID ---
Subjective Remarks: clx + Kleb pneumo ramesh S "I m doing much better" still co R thigh pain which also get better no fever Antibiotics: zosyn Past Medical History: none Allergies/Adverse Reactions: Allergies No Known Allergies Allergy (Verified 07/04/18 10:26) Objective Vital Signs 07/08/18 20:00 07/09/18 00:00 07/09/18 04:00 Temperature 98.8 F 99.7 F H 97.0 F L Pulse Rate 101 H 96 H 95 H Respiratory Rate 20 20 20 Blood Pressure 121/63 119/63 120/67 Pulse Oximetry 98 97 97 07/09/18 08:00 07/09/18 12:00 07/09/18 16:00 Temperature 98.2 F 98.8 F 98.3 F Pulse Rate 101 H 88 Respiratory Rate 16 16 20 Blood Pressure 119/72 126/71 148/67 H Pulse Oximetry 95 99 98 Intake & Output 07/08/18 07/09/18 07/09/18 18:59 06:59 18:59 Intake Total 220 / 220 420 / 420 290 / 290 Output Total 50 / 50 20 / 20 Balance 170 / 170 400 / 400 290 / 290 Intake: IV 100 / 100 100 / 100 50 / 50 Zosyn 3.375 GM Premix 50 ML @ 100 / 100 100 / 100 50 / 50 100 mls/hr IV.SIG Q6HR [facility] Rx#: [id number] Oral 120 / 120 320 / 320 240 / 240 Output: Wound Drainage 50 / 50 20 / 20 Right Upper Abdomen Pigtail 50 / 50 20 / 20 Other: # Voids 5 2 1 Date of Last Bowel Movement 07/04/18 07/08/18 # Bowel Movements 1 07/05/18 20:01 Blood - Peripheral Aerobic Blood Culture - Preliminary No growth in 4 days 07/05/18 20:01 Blood - Peripheral Anaerobic Blood Culture - Final Klebsiella pneumoniae 07/05/18 19:56 Blood - Peripheral Aerobic Blood Culture - Preliminary No growth in 4 days 07/05/18 19:56 Blood - Peripheral Anaerobic Blood Culture - Preliminary No growth in 4 days 07/04/18 14:14 Blood - Peripheral Aerobic Blood Culture - Final No growth in 5 days 07/04/18 14:14 Blood - Peripheral Anaerobic Blood Culture - Preliminary Staphylococcus coag negative 07/04/18 14:19 Blood - Peripheral Aerobic Blood Culture - Final No growth in 5 days 07/04/18 14:19 Blood - Peripheral Anaerobic Blood Culture - Final No growth in 5 days 07/06/18 16:45 Fluid - Other Gram Stain - Final 07/06/18 16:45 Fluid - Other Body Fluid Culture - Final Klebsiella pneumoniae Lab - Hematology Results 07/09/18 06:50 WBC 15.2 H RBC 4.14 L Hgb 11.3 L Hct 33.4 L MCV 80.6 MCH 27.2 MCHC 33.7 RDW 13.7 Plt Count 424 MPV 7.4 Neut % (Auto) 77.6 H Lymph % (Auto) 14.8 [place] % (Auto) 6.2 Eos % (Auto) 1.0 Baso % (Auto) 0.4 Neut # (Auto) 11.8 H Lymph # (Auto) 2.2 [place] # (Auto) 0.9 Eos # (Auto) 0.2 Baso # (Auto) 0.1 WBC Differential . Differential Comment Auto diff final Imaging: ITS Impressions Lumbar Spine MRI 07/04/18 10:49 CONCLUSION: 1. Minimal degenerative disc disease at L4-5 and L5-S1 without central canal stenosis. 2. Minimal caudal right neural foraminal narrowing at L5-S1 without evidence for impingement. 3. No abnormal enhancement. Chest X-Ray 07/04/18 11:54 CONCLUSION: No acute cardiopulmonary process. Abdomen/Pelvis CT 07/04/18 14:04 CONCLUSION: 1. 4.9 x 3.6 x 3.4 cm peripherally enhancing low density mass in segment 8 of the liver extending to the dome. This lesion is most concerning for liver abscess. Less likely differential consideration includes hepatic mass. Abscess Drainage CT 07/06/18 00:00 CONCLUSION: 1. Uncomplicated CT guided drainage of an intrahepatic abscess with 5 mL of pus obtained. This was sent for culture.. Physical Exam: GENERAL: NAD SKIN: Warm and dry. HEAD: Atraumatic. Normocephalic. EYES: Pupils equal and round. No scleral icterus. No injection or drainage. ENT: No nasal bleeding or discharge. Mucous membranes pink and moist. NECK: Trachea midline. No JVD. CARDIOVASCULAR: Regular rate and rhythm. RESPIRATORY: No accessory muscle use. Clear to auscultation. Breath sounds equal bilaterally. GASTROINTESTINAL: Abdomen soft, non-tender, nondistended. Hepatic and splenic margins not palpable. Drain in place RUQ with serosang drainage MUSCULOSKELETAL: Extremities without clubbing, cyanosis, or edema. R thigh anteriorly tender to touch NEUROLOGICAL: Awake and alert. No obvious cranial nerve deficits. Motor grossly within normal limits. Five out of 5 muscle strength in the arms and legs. Normal speech. PSYCHIATRIC: Appropriate mood and affect; insight and judgment normal. Assessment and Plan - Plan Pyogenic abscess, Kleb pneumo sp percutaneous drainage, fever, leukocytosis - resolving 4.9 x 3.6 x 3.4 cm peripherally enhancing low density mass in segment 8 of the liver extending to the dome. This lesion is most concerning for liver abscess R LE pain - another abscess - change zosyn to CFTX - anticipate 6 wks of abx - MR R thigh dw pt
--- NOTE | 2018-07-09 21:09 | XR ---
EXAM DATE: 07/09/2018 9:04 PM EST AGE/SEX: 33 years / Male INDICATIONS: Right leg pain, no injury. CLINICAL DATA: This is the patient's initial encounter. Patient reports that signs and symptoms have been present for 1 day and indicates a pain score of 7/10. MEDICAL/SURGICAL HISTORY: None. None. COMPARISON: No prior exams available for comparison. FINDINGS: No evidence of acute fracture or joint dislocation. There is some cortical erosions involving the med ial cortex along the mid shaft of the femur. The adjacent soft tissues are grossly unremarkable on to day's plain film. CONCLUSION: Nonspecific cortical erosions involving the medial cortex along the mid shaft of the femur. Patient i s currently scheduled for an MRI of the right thigh for further evaluation.. Electronically signed by: Chavez Rojas MD 07/09/2018 9:08 PM EST
[2018-07-10 07:38] LABS: Baso # (Auto) 0.1 th/mm3 (0.0-0.2); Baso % (Auto) 0.5 % (0.0-2.0); Eos # (Auto) 0.2 th/mm3 (0.0-0.4); Eos % (Auto) 1.4 % (0.0-4.0); Hematocrit 34.3 % (39.0-51.0); Hemoglobin 11.2 gm/dL (13.0-17.0); Lymph # (Auto) 2.9 th/mm3 (1.0-4.8); Lymph % (Auto) 18.2 % (9.0-44.0); Mean Corpuscular HGB Conc 32.6 % (32.0-36.0); Mean Corpuscular Hemoglobin 26.7 pg (27.0-34.0); Mean Corpuscular Volume 81.8 fL (80.0-100.0); Mean Platelet Volume 7.5 fL (7.0-11.0); Mono # (Auto) 1.1 th/mm3 (0.0-0.9); Mono % (Auto) 6.7 % (0.0-8.0); Neut # (Auto) 11.7 th/mm3 (1.8-7.7); Neut % (Auto) 73.2 % (16.0-70.0); Platelet Count 453 th/mm3 (150-450); Red Blood Count 4.19 mil/mm3 (4.50-5.90); Red Cell Distribution Width 13.5 % (11.6-17.2)
[2018-07-10] MEDS ORDERED: Gadobutrol PF 7.5 MMOL/7.5 ML Vial (for RAD) IV.SIG ONE ×2 (08:01→15:46)
--- NOTE | 2018-07-10 08:29 | MR ---
EXAM DATE: 07/10/2018 8:05 AM EST AGE/SEX: 33 years / Male INDICATIONS: Right thigh pain. Sepsis s/p liver abscess drainage. CLINICAL DATA: This is the patient's initial encounter. Patient reports that signs and symptoms have been present for 4 - 6 days and indicates a pain score of 5/10. MEDICAL/SURGICAL HISTORY: . Liver abscess. . Abscess drainage. COMPARISON: [facility] [place], FEMUR RIGHT 2V, 07/09/2018. . TECHNIQUE: Multiplanar, multisequence MRI examination was performed without and with ml Gadavist (ga dobutrol) contrast as single exam dose. FINDINGS: There is abnormal nonspecific soft tissue swelling and edema extending along the shaft in the soft ti ssues directly adjacent to the right femur. No definite loculated fluid collections are seen to sugge st a drainable abscess. There is abnormal signal within the bone marrow throughout the mid shaft of t he right femur. The recent plain films demonstrates cortical erosions along the medial cortex of the midshaft of the right femur. These findings are all characteristic for an inflammatory process involv ing the adjacent soft tissues as well as the midshaft of the femur. CONCLUSION: 1. Abnormal increased signal is noted within the bone marrow through the midshaft of the right femur as well as cortical erosions on the medial cortex of the right femur as noted on the plain films. Th is is characteristic of osteomyelitis. 2. Nonspecific edema and soft tissue changes in the adjacent soft tissues that parallel the entire s haft of the right femur. Electronically signed by: Chavez Rojas MD 07/10/2018 8:28 AM EST
[2018-07-10] MEDS: Lactobacillus Acidophilus/L. Spores Tablet PO SCH ×3 (08:31→17:19)
[2018-07-10] MEDS: Senna/Docusate Sodium 8.6/50 MG Tablet PO SCH ×2 (08:32→21:22)
[2018-07-10 08:35] LABS: Eosinophils 2 % (0-4); Lymphocytes 24 % (9-44); Monocytes 3 % (0-8); Myelocytes 1 % (0-0); Platelet Morphology Normal (Normal)
[2018-07-10 08:36] LABS: RBC Morphology Normal (Normal)
--- NOTE | 2018-07-10 13:56 | XR ---
EXAM DATE: 07/10/2018 1:53 PM EST AGE/SEX: 33 years / Male INDICATIONS: Left lower leg pain, no known injury. CLINICAL DATA: This is the patient's initial encounter. Patient reports that signs and symptoms have been present for 4 - 6 days and indicates a pain score of 8/10. MEDICAL/SURGICAL HISTORY: None. None. COMPARISON: No prior exams available for comparison. FINDINGS: Bony structures are intact and in normal alignment. Osseous density is normal. Soft tissues are unre markable. No radiopaque foreign bodies seen. CONCLUSION: Negative examination Electronically signed by: Reuben Carey MD 07/10/2018 1:55 PM EST
--- NOTE | 2018-07-10 14:29 | P.PNIM ---
Subjective Interval history: Patient reports he is feeling better overall. He says he has little to no pain referring to his right thigh. No fevers or chills. Physical Exam Vital signs: Vital Signs 07/09/18 16:00 07/09/18 20:00 07/10/18 00:00 Temperature 98.3 F 98.1 F 98.4 F Pulse Rate 88 100 H 93 H Respiratory Rate 20 20 20 Blood Pressure 148/67 H 148/75 H 128/64 Pulse Oximetry 98 98 97 07/10/18 04:00 07/10/18 08:00 07/10/18 12:00 Temperature 97.7 F 97.5 F L 98.3 F Pulse Rate 96 H 100 H 106 H Respiratory Rate 20 14 18 Blood Pressure 131/61 131/75 143/78 H Pulse Oximetry 97 98 98 Intake & Output 07/09/18 07/10/18 07/10/18 18:59 06:59 18:59 Intake Total 290 / 290 50 / 50 100 / 100 Balance 290 / 290 50 / 50 100 / 100 Weight 64.1 kg Intake: IV 50 / 50 50 / 50 100 / 100 Zosyn 3.375 GM Premix 50 ML @ 50 / 50 50 / 50 100 mls/hr IV.SIG Q6HR SHAUNA Rx#: [id number] Rocephin Inj 2,000 MG In NS Inj 100 / 100 100 ML @ 200 mls/hr IV.SIG Q24H SHAUNA Rx#:[id number] Oral 240 / 240 Other: # Voids 1 3 Date of Last Bowel Movement 07/08/18 Narrative: GENERAL: This is a well-nourished, well-developed patient, in no apparent distress. CARDIOVASCULAR: Normal rate and regular rhythm without murmurs, gallops, or rubs. RESPIRATORY: Good respiratory efforts. Breath sounds equal and clear to auscultation bilaterally. GASTROINTESTINAL: Abdomen soft, right upper quadrant drain appear intact. Minimal drainage. MUSCULOSKELETAL: Extremities without cyanosis, or edema. NEURO: Alert & Oriented x4 to person, place, time, situation. Moves all ext x4 PSYCH: Appropriate mood and affect. Results - Labs CBC & Chem 7: 07/10/18 05:33 07/06/18 06:45 Laboratory Results - last 24 hr 07/10/18 05:33 WBC 16.0 H RBC 4.19 L Hgb 11.2 L Hct 34.3 L MCV 81.8 MCH 26.7 L MCHC 32.6 RDW 13.5 Plt Count 453 H MPV 7.5 Prelim Diff (Auto) Slide review pending Neut % (Auto) 73.2 H Lymph % (Auto) 18.2 Harvey % (Auto) 6.7 Eos % (Auto) 1.4 Baso % (Auto) 0.5 Neut # (Auto) 11.7 H Lymph # (Auto) 2.9 Harvey # (Auto) 1.1 H Eos # (Auto) 0.2 Baso # (Auto) 0.1 WBC Differential Manual diff final Seg Neuts % (Manual) 69 Band Neuts % (Manual) 1 Lymphocytes % (Manual) 24 Monocytes % (Manual) 3 Eosinophils % (Manual) 2 Myelocytes % (Man) 1 H Abs Neuts (Manual) 11.4 H Differential Comment . Platelet Estimate High H Platelet Morphology Normal RBC Morphology Normal Microbiology 07/05/18 20:01 Blood - Peripheral Aerobic Blood Culture - Final No growth in 5 days 07/05/18 20:01 Blood - Peripheral Anaerobic Blood Culture - Final Klebsiella pneumoniae 07/05/18 19:56 Blood - Peripheral Aerobic Blood Culture - Final No growth in 5 days 07/05/18 19:56 Blood - Peripheral Anaerobic Blood Culture - Final No growth in 5 days 07/04/18 14:14 Blood - Peripheral Aerobic Blood Culture - Final No growth in 5 days 07/04/18 14:14 Blood - Peripheral Anaerobic Blood Culture - Preliminary Staphylococcus coag negative 07/04/18 14:19 Blood - Peripheral Aerobic Blood Culture - Final No growth in 5 days 07/04/18 14:19 Blood - Peripheral Anaerobic Blood Culture - Final No growth in 5 days - Imaging Impressions Femur X-Ray 07/09/18 00:00 CONCLUSION: Nonspecific cortical erosions involving the medial cortex along the mid shaft of the femur. Patient is currently scheduled for an MRI of the right thigh for further evaluation.. Femur MRI 07/10/18 00:00 CONCLUSION: 1. Abnormal increased signal is noted within the bone marrow through the midshaft of the right femur as well as cortical erosions on the medial cortex of the right femur as noted on the plain films. This is characteristic of osteomyelitis. 2. Nonspecific edema and soft tissue changes in the adjacent soft tissues that parallel the entire shaft of the right femur. Tibia/Fibula X-Ray 07/10/18 00:00 CONCLUSION: Negative examination - Procedures 1127percutaneous liver abscess drainage placement Assessment and Plan - Assessment (1) Sepsis Code(s): A41.9 - Sepsis, unspecified organism Status: Acute (2) Abscess of liver Code(s): K75.0 - Abscess of liver Status: Acute (3) Sciatica Code(s): M54.30 - Sciatica, unspecified side Status: Acute - Plan 33-year-old male with no known past significant medical history who was admitted due to sepsis secondary to a liver abscess. The patient has Klebsiella bacteremia and also found to have osteomyelitis of the right femur. Source is unknown at this time. 1. Sepsis present on admission secondary to liver abscess. 2. Transaminitis 3. Osteomyelitis of the right femur The patient initially presented with fevers, leukocytosis. Abdominal imaging showed a liver abscess. Patient is status post percutaneous drainage of the liver abscess by interventional radiology. Patient was on Zosyn. Switch to Rocephin per infectious disease. Drain is still in place. Follow-up per IR. Continue pain medications as needed. He is not using much pain medications currently. LFTs are also significantly improving, this is likely secondary to the acute infection in the liver. Hepatitis screen is negative, HIV nonreactive, Lyme serology negative, Entamoeba serology negative Discussed with infectious disease. Concern the patient has seeding infections. He did report a small lump over the left tibia. Plain x-ray was ordered. Discuss with ID. Will consider further imaging. Patient currently on SCDs for DVT prophylax. He is ambulatory. Discharge Planning: Will need outpatient IV antibiotics. Discussed with ID. Possible DC on Thursday.
--- NOTE | 2018-07-10 15:46 | P.PNID ---
Subjective Remarks: pt is afebrile new c/o L tibia tender lump XR neg developped 3-4 days ago minimal drainage from the drain denies [place] Antibiotics: CFTX Past Medical History: none Allergies/Adverse Reactions: Allergies No Known Allergies Allergy (Verified 07/04/18 10:26) Objective Vital Signs 07/09/18 16:00 07/09/18 20:00 07/10/18 00:00 Temperature 98.3 F 98.1 F 98.4 F Pulse Rate 88 100 H 93 H Respiratory Rate 20 20 20 Blood Pressure 148/67 H 148/75 H 128/64 Pulse Oximetry 98 98 97 07/10/18 04:00 07/10/18 08:00 07/10/18 12:00 Temperature 97.7 F 97.5 F L 98.3 F Pulse Rate 96 H 100 H 106 H Respiratory Rate 20 14 18 Blood Pressure 131/61 131/75 143/78 H Pulse Oximetry 97 98 98 Intake & Output 07/09/18 07/10/18 07/10/18 18:59 06:59 18:59 Intake Total 290 / 290 50 / 50 100 / 100 Balance 290 / 290 50 / 50 100 / 100 Weight 64.1 kg Intake: IV 50 / 50 50 / 50 100 / 100 Zosyn 3.375 GM Premix 50 ML @ 50 / 50 50 / 50 100 mls/hr IV.SIG Q6HR SHAUNA Rx#: [id number] Rocephin Inj 2,000 MG In NS Inj 100 / 100 100 ML @ 200 mls/hr IV.SIG Q24H SHAUNA Rx#:[id number] Oral 240 / 240 Other: # Voids 1 3 Date of Last Bowel Movement 07/08/18 07/05/18 20:01 Blood - Peripheral Aerobic Blood Culture - Final No growth in 5 days 07/05/18 20:01 Blood - Peripheral Anaerobic Blood Culture - Final Klebsiella pneumoniae 07/05/18 19:56 Blood - Peripheral Aerobic Blood Culture - Final No growth in 5 days 07/05/18 19:56 Blood - Peripheral Anaerobic Blood Culture - Final No growth in 5 days 07/04/18 14:14 Blood - Peripheral Aerobic Blood Culture - Final No growth in 5 days 07/04/18 14:14 Blood - Peripheral Anaerobic Blood Culture - Preliminary Staphylococcus coag negative 07/04/18 14:19 Blood - Peripheral Aerobic Blood Culture - Final No growth in 5 days 07/04/18 14:19 Blood - Peripheral Anaerobic Blood Culture - Final No growth in 5 days 07/06/18 16:45 Fluid - Other Gram Stain - Final 07/06/18 16:45 Fluid - Other Body Fluid Culture - Final Klebsiella pneumoniae Lab - Hematology Results 07/09/18 07/10/18 06:50 05:33 WBC 15.2 H 16.0 H RBC 4.14 L 4.19 L Hgb 11.3 L 11.2 L Hct 33.4 L 34.3 L MCV 80.6 81.8 MCH 27.2 26.7 L MCHC 33.7 32.6 RDW 13.7 13.5 Plt Count 424 453 H MPV 7.4 7.5 Prelim Diff (Auto) Slide review pending Neut % (Auto) 77.6 H 73.2 H Lymph % (Auto) 14.8 18.2 Hartley % (Auto) 6.2 6.7 Eos % (Auto) 1.0 1.4 Baso % (Auto) 0.4 0.5 Neut # (Auto) 11.8 H 11.7 H Lymph # (Auto) 2.2 2.9 Hartley # (Auto) 0.9 1.1 H Eos # (Auto) 0.2 0.2 Baso # (Auto) 0.1 0.1 WBC Differential . Manual diff final Seg Neuts % (Manual) 69 Band Neuts % (Manual) 1 Lymphocytes % (Manual) 24 Monocytes % (Manual) 3 Eosinophils % (Manual) 2 Myelocytes % (Man) 1 H Abs Neuts (Manual) 11.4 H Differential Comment Auto diff final . Platelet Estimate High H Platelet Morphology Normal RBC Morphology Normal Imaging: ITS Impressions Lumbar Spine MRI 07/04/18 10:49 CONCLUSION: 1. Minimal degenerative disc disease at L4-5 and L5-S1 without central canal stenosis. 2. Minimal caudal right neural foraminal narrowing at L5-S1 without evidence for impingement. 3. No abnormal enhancement. Chest X-Ray 07/04/18 11:54 CONCLUSION: No acute cardiopulmonary process. Abdomen/Pelvis CT 07/04/18 14:04 CONCLUSION: 1. 4.9 x 3.6 x 3.4 cm peripherally enhancing low density mass in segment 8 of the liver extending to the dome. This lesion is most concerning for liver abscess. Less likely differential consideration includes hepatic mass. Abscess Drainage CT 07/06/18 00:00 CONCLUSION: 1. Uncomplicated CT guided drainage of an intrahepatic abscess with 5 mL of pus obtained. This was sent for culture.. Femur X-Ray 07/09/18 00:00 CONCLUSION: Nonspecific cortical erosions involving the medial cortex along the mid shaft of the femur. Patient is currently scheduled for an MRI of the right thigh for further evaluation.. Femur MRI 07/10/18 00:00 CONCLUSION: 1. Abnormal increased signal is noted within the bone marrow through the midshaft of the right femur as well as cortical erosions on the medial cortex of the right femur as noted on the plain films. This is characteristic of osteomyelitis. 2. Nonspecific edema and soft tissue changes in the adjacent soft tissues that parallel the entire shaft of the right femur. Tibia/Fibula X-Ray 07/10/18 00:00 CONCLUSION: Negative examination Physical Exam: GENERAL: NAD SKIN: Warm and dry. HEAD: Atraumatic. Normocephalic. EYES: Pupils equal and round. No scleral icterus. No injection or drainage. ENT: No nasal bleeding or discharge. Mucous membranes pink and moist. NECK: Trachea midline. No JVD. CARDIOVASCULAR: Regular rate and rhythm. RESPIRATORY: No accessory muscle use. Clear to auscultation. Breath sounds equal bilaterally. GASTROINTESTINAL: Abdomen soft, non-tender, nondistended. Hepatic and splenic margins not palpable. Drain in place RUQ with serosang drainage MUSCULOSKELETAL: Extremities without clubbing, cyanosis, or edema. R thigh anteriorly tender to touch LLE - ill defined tender swelling in mid tibia NEUROLOGICAL: Awake and alert. Non focal PSYCHIATRIC: Appropriate mood and affect; insight and judgment normal. Assessment and Plan - Plan Pyogenic abscess, Kleb pneumo sp percutaneous drainage, fever, leukocytosis - resolving 4.9 x 3.6 x 3.4 cm peripherally enhancing low density mass in segment 8 of the liver extending to the dome. This lesion is most concerning for liver abscess R femur oste L tibia swelling, pain ? oste ? abscess - cont CFTX - anticipate long course of abx - MR L tibia Seretec dw pt akua Werner
--- NOTE | 2018-07-10 17:00 | MR ---
EXAM DATE: 07/10/2018 3:59 PM EST AGE/SEX: 33 years / Male INDICATIONS: Osteomyelitis CLINICAL DATA: This is the patient's initial encounter. Patient reports that signs and symptoms have been present for 4 - 6 days and indicates a pain score of 4/10. MEDICAL/SURGICAL HISTORY: . Liver abscess. None. COMPARISON: [facility] – [place], MR THIGH RIGHT W & W/O CONTRAST, 07/10/2018. . TECHNIQUE: Multiplanar, multisequence MRI examination was performed without and with ml Gadavist (ga dobutrol) contrast as single exam dose. FINDINGS: There is diffuse marrow signal edema involving the distal half of the left tibia as well as enhanceme nt of the marrow. There is also edema and enhancement anterior to the tibial cortex in this location. The findings are suggestive of osteomyelitis and adjacent cellulitis until proven otherwise. No deep soft tissue abscess collection is noted. The fibula is normal without marrow edema or enhancement. T he underlying muscular structures are unremarkable. Although this examination is not tailored to the right lower leg 8 can be seen on some of the sequenc es and there appears to be diffuse marrow edema and enhancement throughout the entire right tibia. Th ere is also edema surrounding the right tibia predominantly anterior to the tibial cortex in the lowe r half. This is also suggestive of osteomyelitis in probable cellulitis. No soft tissue abscess is id entified. CONCLUSION: 1. Diffuse marrow signal edema involving the distal half of the left tibia as well as enhancement of the marrow. There is also edema and enhancement anterior to the tibial cortex in this location. The findings are suggestive of osteomyelitis and adjacent cellulitis until proven otherwise. No deep soft tissue abscess collection is noted. The fibula is normal without marrow edema or enhancement. The un derlying muscular structures are unremarkable. 2. Although this examination is not tailored to the right lower leg 8 can be seen on some of the seq uences and there appears to be diffuse marrow edema and enhancement throughout the entire right tibia . There is also edema surrounding the right tibia predominantly anterior to the tibial cortex in the lower half. This is also suggestive of osteomyelitis in probable cellulitis. No soft tissue abscess i s identified. Electronically signed by: Reuben Carey MD 07/10/2018 4:59 PM EST
[2018-07-10] MEDS: oxyCODONE/Acetaminophen 10/325 Tablet PO PRN (21:10)
[2018-07-11] MEDS: oxyCODONE/Acetaminophen 10/325 Tablet PO PRN ×2 (04:15→16:33)
[2018-07-11] MEDS: Lactobacillus Acidophilus/L. Spores Tablet PO SCH ×3 (08:47→18:52)
[2018-07-11] MEDS: Senna/Docusate Sodium 8.6/50 MG Tablet PO SCH ×2 (10:17→21:29)
[2018-07-11] MEDS: HYDROmorphone PF Inj 0.5 MG/0.5 ML Syringe IV.PUSH PRN (11:59)
--- NOTE | 2018-07-11 15:43 | P.PNIM ---
Subjective Interval history: Patient reports is feeling okay today. Pain is controlled with medications. Afebrile. Physical Exam Vital signs: Vital Signs 07/10/18 16:00 07/10/18 20:00 07/11/18 00:00 Temperature 98.0 F 97.7 F 98 F Pulse Rate 107 H 84 79 Respiratory Rate 18 18 18 Blood Pressure 152/62 H 132/64 131/60 Pulse Oximetry 97 97 99 07/11/18 04:00 07/11/18 08:00 07/11/18 12:00 Temperature 98 F 98.2 F 98.4 F Pulse Rate 82 79 86 Respiratory Rate 18 14 16 Blood Pressure 124/60 136/65 137/71 Pulse Oximetry 98 99 98 Intake & Output 07/10/18 07/11/18 07/11/18 18:59 06:59 18:59 Intake Total 700 / 700 100 / 100 Balance 700 / 700 100 / 100 Weight 64.1 kg Intake: IV 100 / 100 100 / 100 Rocephin Inj 2,000 MG In NS Inj 100 / 100 100 / 100 100 ML @ 200 mls/hr IV.SIG Q24H SHAUNA Rx#:[id number] Oral 600 / 600 Other: # Voids 3 Date of Last Bowel Movement 07/08/18 07/11/18 Narrative: GENERAL: This is a well-nourished, well-developed patient, in no apparent distress. CARDIOVASCULAR: Normal rate and regular rhythm without murmurs, gallops, or rubs. RESPIRATORY: Good respiratory efforts. Breath sounds equal and clear to auscultation bilaterally. GASTROINTESTINAL: Abdomen soft, right upper quadrant drain appear intact. Minimal drainage. MUSCULOSKELETAL: Extremities without cyanosis, or edema. NEURO: Alert & Oriented x4 to person, place, time, situation. Moves all ext x4 PSYCH: Appropriate mood and affect. Results - Labs CBC & Chem 7: 07/10/18 05:33 07/06/18 06:45 Microbiology 07/04/18 14:14 Blood - Peripheral Aerobic Blood Culture - Final No growth in 5 days 07/04/18 14:14 Blood - Peripheral Anaerobic Blood Culture - Final Staphylococcus auricularis 07/05/18 20:01 Blood - Peripheral Aerobic Blood Culture - Final No growth in 5 days 07/05/18 20:01 Blood - Peripheral Anaerobic Blood Culture - Final Klebsiella pneumoniae 07/05/18 19:56 Blood - Peripheral Aerobic Blood Culture - Final No growth in 5 days 07/05/18 19:56 Blood - Peripheral Anaerobic Blood Culture - Final No growth in 5 days - Imaging Impressions Lower Extremity MRI 07/10/18 00:00 CONCLUSION: 1. Diffuse marrow signal edema involving the distal half of the left tibia as well as enhancement of the marrow. There is also edema and enhancement anterior to the tibial cortex in this location. The findings are suggestive of osteomyelitis and adjacent cellulitis until proven otherwise. No deep soft tissue abscess collection is noted. The fibula is normal without marrow edema or enhancement. The underlying muscular structures are unremarkable. 2. Although this examination is not tailored to the right lower leg 8 can be seen on some of the sequences and there appears to be diffuse marrow edema and enhancement throughout the entire right tibia. There is also edema surrounding the right tibia predominantly anterior to the tibial cortex in the lower half. This is also suggestive of osteomyelitis in probable cellulitis. No soft tissue abscess is identified. - Procedures 1127percutaneous liver abscess drainage placement Assessment and Plan - Assessment (1) Sepsis Code(s): A41.9 - Sepsis, unspecified organism Status: Acute (2) Abscess of liver Code(s): K75.0 - Abscess of liver Status: Acute (3) Sciatica Code(s): M54.30 - Sciatica, unspecified side Status: Acute - Plan 33-year-old male with no known past significant medical history who was admitted due to sepsis secondary to a liver abscess. The patient has Klebsiella bacteremia and also found to have osteomyelitis of bilateral femur. Source is unknown at this time. 1. Sepsis present on admission secondary to liver abscess. 2. Transaminitis 3. Osteomyelitis of bilateral femur The patient initially presented with fevers, leukocytosis. Abdominal imaging showed a liver abscess. Patient is status post percutaneous drainage of the liver abscess by interventional radiology. Patient was on Zosyn. Switch to Rocephin per infectious disease. Drain is still in place. Follow-up per IR. Continue pain medications as needed. He is not using much pain medications currently. LFTs are also significantly improving, this is likely secondary to the acute infection in the liver. Hepatitis screen is negative, HIV nonreactive, Lyme serology negative, Entamoeba serology negative Patient currently on SCDs for DVT prophylaxis. He is ambulatory. Discharge Planning: Will need prolonged outpatient IV antibiotics. Discussed with ID. Need drain Dced first.
--- NOTE | 2018-07-11 15:45 | P.DCO ---
- Diagnosis (1) Osteomyelitis Status: Acute (2) Sepsis Status: Acute (3) Abscess of liver Status: Acute - Home Health Nursing Order: Medical education, IV medication administration - Case Management Consult Case Management Consult-Home Health: Yes - Certification I have seen patient Rocky Cruz on 07/11/18. My clinical findings support the need for the requested home health care services because: Infection with risk of complications I certify that my clinical findings support that this patient is homebound because: Unable to use public transportation
[2018-07-12] MEDS: oxyCODONE/Acetaminophen 10/325 Tablet PO PRN ×3 (00:08→21:19)
[2018-07-12 07:56] LABS: Hematocrit 33.6 % (39.0-51.0); Hemoglobin 11.2 gm/dL (13.0-17.0); Mean Corpuscular HGB Conc 33.2 % (32.0-36.0); Mean Corpuscular Hemoglobin 27.3 pg (27.0-34.0); Mean Corpuscular Volume 82.2 fL (80.0-100.0); Mean Platelet Volume 7.4 fL (7.0-11.0); Platelet Count 472 th/mm3 (150-450); Red Blood Count 4.09 mil/mm3 (4.50-5.90); Red Cell Distribution Width 13.7 % (11.6-17.2); White Blood Count 11.9 th/mm3 (4.0-11.0)
[2018-07-12 08:20] LABS: Anion Gap 3 meq/L (5-15); Blood Urea Nitrogen 15 mg/dL (7-18); Calcium 10.3 mg/dL (8.5-10.1); Carbon Dioxide 34.3 meq/L (21.0-32.0); Chloride 99 meq/L (98-107); Glomerular Filtration Rate Greater Than 89 mL/min (>89); Glucose,Random 85 mg/dL (74-106); Potassium 4.3 meq/L (3.5-5.1); Sodium 136 meq/L (136-145)
[2018-07-12] MEDS: Lactobacillus Acidophilus/L. Spores Tablet PO SCH ×3 (09:21→17:58)
[2018-07-12] MEDS: Senna/Docusate Sodium 8.6/50 MG Tablet PO SCH ×2 (09:22→21:49)
--- NOTE | 2018-07-12 10:15 | P.PNIM ---
Subjective Interval history: Patient reports he is feeling okay today. Bilateral lower extremity pain is controlled and manageable. We discussed MRI findings of probable osteoma involving the as well. Physical Exam Vital signs: Vital Signs 07/11/18 12:00 07/11/18 16:00 07/11/18 20:00 Temperature 98.4 F 98.2 F 98.7 F Pulse Rate 86 94 H 77 Respiratory Rate 16 14 20 Blood Pressure 137/71 138/75 140/74 Pulse Oximetry 98 96 98 07/12/18 00:00 07/12/18 04:00 07/12/18 08:00 Temperature 98.8 F 98.1 F 97.3 F L Pulse Rate 80 79 97 H Respiratory Rate 20 20 20 Blood Pressure 142/71 H 118/76 130/78 Pulse Oximetry 98 99 99 Intake & Output 07/11/18 07/12/18 07/12/18 18:59 06:59 18:59 Intake Total 100 / 100 205 / 205 Output Total 20 / 20 Balance 100 / 100 185 / 185 Weight 63.3 kg Intake: IV 100 / 100 Rocephin Inj 2,000 MG In NS Inj 100 / 100 100 ML @ 200 mls/hr IV.SIG Q24H SHAUNA Rx#:[id number] Oral 200 / 200 Tube Irrigant 5 / 5 Output: Wound Drainage 20 / 20 Right Upper Abdomen Pigtail 20 / 20 Other: # Voids 2 Date of Last Bowel Movement 07/11/18 Narrative: GENERAL: This is a well-nourished, well-developed patient, in no apparent distress. CARDIOVASCULAR: Normal rate and regular rhythm without murmurs, gallops, or rubs. RESPIRATORY: Good respiratory efforts. Breath sounds equal and clear to auscultation bilaterally. GASTROINTESTINAL: Abdomen soft, right upper quadrant drain appear intact. Minimal drainage. MUSCULOSKELETAL: Extremities without cyanosis, or edema. Tender to palpation over the left anterior tibia. NEURO: Alert & Oriented x4 to person, place, time, situation. Moves all ext x4 PSYCH: Appropriate mood and affect. Results - Labs CBC & Chem 7: 07/12/18 05:34 07/12/18 05:43 Laboratory Results - last 24 hr 07/12/18 07/12/18 05:34 05:43 WBC 11.9 H RBC 4.09 L Hgb 11.2 L Hct 33.6 L MCV 82.2 MCH 27.3 MCHC 33.2 RDW 13.7 Plt Count 472 H MPV 7.4 Sodium 136 Potassium 4.3 Chloride 99 Carbon Dioxide 34.3 H Anion Gap 3 L BUN 15 Creatinine 0.82 Estimated GFR Greater than 89 Random Glucose 85 Calcium 10.3 H Microbiology 07/04/18 14:14 Blood - Peripheral Aerobic Blood Culture - Final No growth in 5 days 07/04/18 14:14 Blood - Peripheral Anaerobic Blood Culture - Final Staphylococcus auricularis - Procedures 1127percutaneous liver abscess drainage placement Assessment and Plan - Assessment (1) Osteomyelitis Code(s): M86.9 - Osteomyelitis, unspecified Status: Acute (2) Sepsis Code(s): A41.9 - Sepsis, unspecified organism Status: Acute (3) Abscess of liver Code(s): K75.0 - Abscess of liver Status: Acute (4) Sciatica Code(s): M54.30 - Sciatica, unspecified side Status: Acute - Plan 33-year-old male with no known past significant medical history who was admitted due to sepsis secondary to a liver abscess. The patient has Klebsiella bacteremia and also found to have osteomyelitis of bilateral femur. Source is unknown at this time. 1. Sepsis present on admission secondary to liver abscess. 2. Transaminitis 3. Osteomyelitis of bilateral femur The patient initially presented with fevers, leukocytosis. Abdominal imaging showed a liver abscess. Patient is status post percutaneous drainage of the liver abscess by interventional radiology. Patient was on Zosyn. Switched to Rocephin per infectious disease. Drain is still in place. Follow-up per IR. Discussed with RN. I will will consider discontinuing the drain today. Continue pain medications as needed. He is not using much pain medications currently. LFTs are also significantly improving, this is likely secondary to the acute infection in the liver. Hepatitis screen is negative, HIV nonreactive, Lyme serology negative, Entamoeba serology negative Infectious disease following. Continue IV antibiotics. A WBC tagged scan is pending to evaluate for further infectious focus. Patient currently on SCDs for DVT prophylaxis. He is ambulatory. Discharge Planning: Will need prolonged outpatient IV antibiotics. Discussed with ID. Need drain Dced first.
[2018-07-12] MEDS: HYDROmorphone PF Inj 0.5 MG/0.5 ML Syringe IV.PUSH PRN (16:59)
[2018-07-13] MEDS: HYDROmorphone PF Inj 0.5 MG/0.5 ML Syringe IV.PUSH PRN (08:13)
[2018-07-13] MEDS: Senna/Docusate Sodium 8.6/50 MG Tablet PO SCH ×2 (10:02→21:14)
[2018-07-13] MEDS: Lactobacillus Acidophilus/L. Spores Tablet PO SCH ×3 (10:02→17:08)
--- NOTE | 2018-07-13 12:00 | NM ---
EXAM DATE: 07/13/2018 10:24 AM EST AGE/SEX: 33 years / Male INDICATIONS: Liver abscess started a week ago. CLINICAL DATA: This is the patient's initial encounter. Patient reports that signs and symptoms have been present for 1 week and indicates a pain score of 5/10. MEDICAL/SURGICAL HISTORY: None. None. COMPARISON: [facility] – [place], [place] ABDOMEN & PELVIS W CONTRAST, 07/04/2018. . DOSE: 21 mCi Tc99m Ceretec labeled white blood cells IV PLANAR IMAGIN min 3 hr , 24 hrs SPECT IMAGIN hrs IMAGING: SPECT/CT imaging with fusion was performed. RADIATION DOSE: 3.19 CTDIvol(mGy) TECHNIQUE: Following the in vitro labeling of autologous white cells and reinjection, whole body sca n was performed at the specified times. Imaging was performed at specified times in sagittal, axial and coronal planes. Attenuation correction was performed with computed tomography and both the atten uation correction and non-attenuation corrected data sets were reviewed. FINDINGS: The patient has a pigtail catheter in the right liver. There is adjacent air. There is no abnormal ac tivity within the liver or surrounding the drain. Otherwise, there is normal physiologic distribution of the radiopharmaceutical. CONCLUSION: No abnormal activity is identified within the liver to suggest residual liver abscess. Electronically signed by: Master Goemz MD 07/13/2018 11:58 AM EST
--- NOTE | 2018-07-13 13:05 | P.PNIM ---
Subjective Interval history: Patient reports he is feeling okay today. He is ambulating in the room. Drain with minimal output. He is inquiring about when it would be taken out. Physical Exam Vital signs: Vital Signs 07/12/18 16:00 07/12/18 20:00 07/13/18 00:00 Temperature 97.3 F L 98 F 97.9 F Pulse Rate 80 91 H 80 Respiratory Rate 20 20 20 Blood Pressure 130/76 136/75 128/64 Pulse Oximetry 98 99 98 07/13/18 04:00 07/13/18 07:35 07/13/18 11:45 Temperature 98 F 98.0 F 97.9 F Pulse Rate 80 107 H 107 H Respiratory Rate 20 20 20 Blood Pressure 131/56 L 125/78 142/91 H Pulse Oximetry 99 98 99 Intake & Output 07/12/18 07/13/18 07/13/18 18:59 06:59 18:59 Intake Total 1205 / 1205 100 / 100 5 / 5 Output Total 20 / 20 0 / 0 Balance 1185 / 1185 100 / 100 5 / 5 Weight 64.3 kg Intake: IV 100 / 100 Rocephin Inj 2,000 MG In NS Inj 100 / 100 100 ML @ 200 mls/hr IV.SIG Q24H [facility] Rx#:[id number] Oral 1200 / 1200 Tube Irrigant 5 / 5 5 / 5 Output: Wound Drainage 20 / 20 0 / 0 Right Upper Abdomen Pigtail 20 / 20 0 / 0 Other: # Voids 2 3 Date of Last Bowel Movement 07/12/18 07/13/18 Narrative: GENERAL: This is a well-nourished, well-developed patient, in no apparent distress. CARDIOVASCULAR: Normal rate and regular rhythm without murmurs, gallops, or rubs. RESPIRATORY: Good respiratory efforts. Breath sounds equal and clear to auscultation bilaterally. GASTROINTESTINAL: Abdomen soft, right upper quadrant drain appear intact. Minimal drainage. MUSCULOSKELETAL: Extremities without cyanosis, or edema. Tender to palpation over the left anterior tibia. NEURO: Alert & Oriented x4 to person, place, time, situation. Moves all ext x4 PSYCH: Appropriate mood and affect. Results - Labs CBC & Chem 7: 07/12/18 05:34 07/12/18 05:43 - Imaging Impressions WBC Scan Nuclear Medicine 07/12/18 00:00 CONCLUSION: No abnormal activity is identified within the liver to suggest residual liver abscess. - Procedures 1127percutaneous liver abscess drainage placement Assessment and Plan - Assessment (1) Osteomyelitis Code(s): M86.9 - Osteomyelitis, unspecified Status: Acute (2) Sepsis Code(s): A41.9 - Sepsis, unspecified organism Status: Acute (3) Abscess of liver Code(s): K75.0 - Abscess of liver Status: Acute (4) Sciatica Code(s): M54.30 - Sciatica, unspecified side Status: Acute - Plan 33-year-old male with no known past significant medical history who was admitted due to sepsis secondary to a liver abscess. The patient has Klebsiella bacteremia and also found to have osteomyelitis of bilateral femur. Source is unknown at this time. 1. Sepsis present on admission secondary to liver abscess. 2. Transaminitis 3. Osteomyelitis of bilateral lower extremities The patient initially presented with fevers, leukocytosis. Abdominal imaging showed a liver abscess. Patient is status post percutaneous drainage of the liver abscess by interventional radiology. Patient was on Zosyn. Switched to Rocephin per infectious disease. Drain is still in place. Follow-up per IR. Discussed with RN. I will will consider discontinuing the drain today. Continue pain medications as needed. He is not using much pain medications currently. LFTs are also significantly improving, this is likely secondary to the acute infection in the liver. Hepatitis screen is negative, HIV nonreactive, Lyme serology negative, Entamoeba serology negative Infectious disease following. Continue IV antibiotics. A WBC tagged scan was done per ID and reports "No abnormal activity is identified within the liver to suggest residual liver abscess." Further plans per infectious disease regarding final antibiotics recommendations. Once the drain is removed, can consider outpatient IV antibiotics. Will discuss with ID. Patient currently on SCDs for DVT prophylaxis. He is ambulatory. Discharge Planning: Will need prolonged outpatient IV antibiotics. Need drain Dced first.
[2018-07-13] MEDS: oxyCODONE/Acetaminophen 10/325 Tablet PO PRN ×2 (14:57→21:13)
--- NOTE | 2018-07-13 19:13 | P.PNID ---
Subjective Remarks: pt is afebrile new c/o L tibia tender lump XR neg drain wa removed Antibiotics: CFTX Past Medical History: none Allergies/Adverse Reactions: Allergies No Known Allergies Allergy (Verified 07/04/18 10:26) Objective Vital Signs 07/12/18 20:00 07/13/18 00:00 07/13/18 04:00 Temperature 98 F 97.9 F 98 F Pulse Rate 91 H 80 80 Respiratory Rate 20 20 20 Blood Pressure 136/75 128/64 131/56 L Pulse Oximetry 99 98 99 07/13/18 07:35 07/13/18 11:45 07/13/18 14:30 Temperature 98.0 F 97.9 F 97.4 F L Pulse Rate 107 H 107 H 104 H Respiratory Rate 20 20 20 Blood Pressure 125/78 142/91 H 138/65 Pulse Oximetry 98 99 99 Intake & Output 07/13/18 07/13/18 07/14/18 06:59 18:59 06:59 Intake Total 100 / 100 755 / 755 Output Total 0 / 0 Balance 100 / 100 755 / 755 Weight 64.3 kg Intake: IV 100 / 100 Rocephin Inj 2,000 MG In NS Inj 100 / 100 100 ML @ 200 mls/hr IV.SIG Q24H [facility] Rx#:[id number] Oral 750 / 750 Tube Irrigant 5 / 5 Output: Wound Drainage 0 / 0 Right Upper Abdomen Pigtail 0 / 0 Other: # Voids 3 2 Date of Last Bowel Movement 07/13/18 # Bowel Movements 1 07/04/18 14:14 Blood - Peripheral Aerobic Blood Culture - Final No growth in 5 days 07/04/18 14:14 Blood - Peripheral Anaerobic Blood Culture - Final Staphylococcus auricularis Lab - Hematology Results 07/12/18 05:34 WBC 11.9 H RBC 4.09 L Hgb 11.2 L Hct 33.6 L MCV 82.2 MCH 27.3 MCHC 33.2 RDW 13.7 Plt Count 472 H MPV 7.4 Lab - Chemistry Results 07/12/18 07/12/18 05:43 05:43 Sodium 136 Potassium 4.3 Chloride 99 Carbon Dioxide 34.3 H Anion Gap 3 L BUN 15 Creatinine 0.82 Estimated GFR Greater than 89 Random Glucose 85 Calcium 10.3 H C-Reactive Protein 3.50 H Imaging: ITS Impressions Lumbar Spine MRI 07/04/18 10:49 CONCLUSION: 1. Minimal degenerative disc disease at L4-5 and L5-S1 without central canal stenosis. 2. Minimal caudal right neural foraminal narrowing at L5-S1 without evidence for impingement. 3. No abnormal enhancement. Chest X-Ray 07/04/18 11:54 CONCLUSION: No acute cardiopulmonary process. Abdomen/Pelvis CT 07/04/18 14:04 CONCLUSION: 1. 4.9 x 3.6 x 3.4 cm peripherally enhancing low density mass in segment 8 of the liver extending to the dome. This lesion is most concerning for liver abscess. Less likely differential consideration includes hepatic mass. Abscess Drainage CT 07/06/18 00:00 CONCLUSION: 1. Uncomplicated CT guided drainage of an intrahepatic abscess with 5 mL of pus obtained. This was sent for culture.. Femur X-Ray 07/09/18 00:00 CONCLUSION: Nonspecific cortical erosions involving the medial cortex along the mid shaft of the femur. Patient is currently scheduled for an MRI of the right thigh for further evaluation.. Femur MRI 07/10/18 00:00 CONCLUSION: 1. Abnormal increased signal is noted within the bone marrow through the midshaft of the right femur as well as cortical erosions on the medial cortex of the right femur as noted on the plain films. This is characteristic of osteomyelitis. 2. Nonspecific edema and soft tissue changes in the adjacent soft tissues that parallel the entire shaft of the right femur. Lower Extremity MRI 07/10/18 00:00 CONCLUSION: 1. Diffuse marrow signal edema involving the distal half of the left tibia as well as enhancement of the marrow. There is also edema and enhancement anterior to the tibial cortex in this location. The findings are suggestive of osteomyelitis and adjacent cellulitis until proven otherwise. No deep soft tissue abscess collection is noted. The fibula is normal without marrow edema or enhancement. The underlying muscular structures are unremarkable. 2. Although this examination is not tailored to the right lower leg 8 can be seen on some of the sequences and there appears to be diffuse marrow edema and enhancement throughout the entire right tibia. There is also edema surrounding the right tibia predominantly anterior to the tibial cortex in the lower half. This is also suggestive of osteomyelitis in probable cellulitis. No soft tissue abscess is identified. Tibia/Fibula X-Ray 07/10/18 00:00 CONCLUSION: Negative examination WBC Scan Nuclear Medicine 07/12/18 00:00 CONCLUSION: No abnormal activity is identified within the liver to suggest residual liver abscess. Physical Exam: GENERAL: NAD SKIN: Warm and dry. HEAD: Atraumatic. Normocephalic. EYES: Pupils equal and round. No scleral icterus. No injection or drainage. ENT: No nasal bleeding or discharge. Mucous membranes pink and moist. NECK: Trachea midline. No JVD. CARDIOVASCULAR: Regular rate and rhythm. RESPIRATORY: No accessory muscle use. Clear to auscultation. Breath sounds equal bilaterally. GASTROINTESTINAL: Abdomen soft, non-tender, nondistended. Hepatic and splenic margins not palpable. Drain in place RUQ with serosang drainage MUSCULOSKELETAL: Extremities without clubbing, cyanosis, or edema. R thigh anteriorly tender to touch LLE - ill defined tender swelling in mid tibia R tibias also tender to palpation NEUROLOGICAL: Awake and alert. Non focal PSYCHIATRIC: Appropriate mood and affect; insight and judgment normal. Assessment and Plan - Plan Pyogenic abscess, Kleb pneumo sp percutaneous drainage, fever, leukocytosis - resolving 4.9 x 3.6 x 3.4 cm peripherally enhancing low density mass in segment 8 of the liver extending to the dome. This lesion is most concerning for liver abscess R femur oste L tibia swelling, pain ? oste ? abscess Ceretec negative -Cont CFTX for now will switch to PO abx - anticipate long course of abx US liver to eval for residual abscess dw pt akua Werner
[2018-07-14] MEDS: oxyCODONE/Acetaminophen 10/325 Tablet PO PRN ×2 (04:55→12:17)
[2018-07-14 05:13] LABS: Hemoglobin 10.5 gm/dL (13.0-17.0); Mean Corpuscular HGB Conc 33.7 % (32.0-36.0); Mean Corpuscular Hemoglobin 27.7 pg (27.0-34.0); Mean Corpuscular Volume 82.2 fL (80.0-100.0); Mean Platelet Volume 7.2 fL (7.0-11.0); Platelet Count 488 th/mm3 (150-450); Red Blood Count 3.77 mil/mm3 (4.50-5.90); Red Cell Distribution Width 13.5 % (11.6-17.2); White Blood Count 8.6 th/mm3 (4.0-11.0)
[2018-07-14 05:39] LABS: Anion Gap 6 meq/L (5-15); Blood Urea Nitrogen 17 mg/dL (7-18); Calcium 9.8 mg/dL (8.5-10.1); Carbon Dioxide 32.8 meq/L (21.0-32.0); Chloride 102 meq/L (98-107); Glomerular Filtration Rate Greater Than 89 mL/min (>89); Glucose,Random 95 mg/dL (74-106); Potassium 4.3 meq/L (3.5-5.1); Sodium 141 meq/L (136-145)
--- NOTE | 2018-07-14 08:38 | US ---
EXAM DATE: 07/14/2018 8:31 AM EST AGE/SEX: 33 years / Male INDICATIONS: Abdominal pain. CLINICAL DATA: This is the patient's initial encounter. Patient reports that signs and symptoms have been present for 1 day and indicates a pain score of 1/10. MEDICAL/SURGICAL HISTORY: . Ingrown right big toenail. Flu. Liver abscess. . Intrahepatic drai n placement. COMPAR[place] [facility] [place] 07/04/2018. . MEASUREMENTS: Liver:__ 15.1 cm. Common Bile Duct:__ 2mm. Right Kidney:__ 10.8 x 6.5 x 5.0 cm. FINDINGS: Liver: Normal echogenicity without focal lesion or ductal dilatation. No fluid collection or abscess is visualized. Portal Vein: Hepatopedal flow seen in portal vein. Common Duct: No intraluminal mass or stone visualized. Gallbladder: The gallbladder contains multiple small echogenic mobile stones. No wall thickening is present. There is trace pericholecystic fluid. Sonographic Tabares sign is negative. Pancreas: The visualized portions are within normal limits Right Kidney: Normal echogenicity and cortical thickness. No mass or hydronephrosis. Other: None. CONCLUSION: 1. No acute abnormality is identified to explain the abdominal pain. No liver abscess or liver lesio n is identified. 2. Cholelithiasis with mild pericholecystic fluid. However, there are no additional findings to sugg est gallbladder obstruction or inflammation. Electronically signed by: Master Gomez MD 07/14/2018 8:37 AM EST
[2018-07-14] MEDS: Lactobacillus Acidophilus/L. Spores Tablet PO SCH ×3 (08:55→17:37)
[2018-07-14] MEDS: Senna/Docusate Sodium 8.6/50 MG Tablet PO SCH (08:56)
--- NOTE | 2018-07-14 12:31 | P.DCO ---
Post Hospital Infusion Therapy - Infusion Therapy Location of Infusion Therapy: Home Health Care IV Infusion Order - Patient Information Patient Weight: 64.5 kg - Diagnosis (1) Sepsis Code(s): A41.9 - Sepsis, unspecified organism (2) Abscess of liver Code(s): K75.0 - Abscess of liver (3) Osteomyelitis Code(s): M86.9 - Osteomyelitis, unspecified - Administer Medication Ceftriaxone Dose: 2 grams IV Directions: q 24 hours Start Treatment: 07/14/18 Stop Treatment: 08/20/18 - Additional Information Venous Access: PICC Line Additional Instructions: [x] Peripheral flush and dressing changes per protocol [x] Implanted port and central power line lineman: * Implanted port: 10 ml Normal Saline followed by 5 ml Heparin 100 units/ml Heparin flush after each use and monthly to maintain. [] May leave port accessed during therapy. [] May leave peripheral site accessed for duration of therapy. [x] If patient has SOB or respiratory distress, check oxygen saturation. If less than 90% or clinical signs of respiratory distress, administer oxygen at 2 L/min. via nasal cannula and notify physician. [x] Anaphylaxis/Reaction orders: * Stop infusion. * Keep IV line open with saline flush. * Notify physician. * Monitor vital signs every 15 minutes until symptoms resolve. * Check Oxygen saturation; Oxygen at 2 L/min. via nasal cannula if less than 90% or clinical signs of respiratory distress. * Administer diphenhydramine (Benadryl) 25 mg IV STAT, (unless patient has received as pre-med). May repeat once, if necessary. * Solu-Cortef 250 mg IVP over 30-60 seconds, use 100 mg vials for each dissolution. * Epinephrine (1mg/1 ml) 0.3 mg subcutaneously or IVP now with any signs of respiratory distress. * Check with physician for new additional pre-med orders if patient is re- challenged or re-treated. [x] May remove PICC line when treatment complete, after confirming with Physician. [x] If the patient is admitted to the hospital, the ED, or transferred via [facility] , complete transfer form including medication reconciliation order sheet. Weekly Labs: CBC w/diff, CMP - Case Management Consult Case Management Consult-IVF: Yes - Patient Information Allergies No Known Allergies Allergy (Verified 07/04/18 10:26)
--- NOTE | 2018-07-14 14:07 | P.PNADD ---
Addendum to Inpatient Note Additional information: US negative OK to dc pt PICC: OK to get PICC line w/o additional blood clx OPAT with 6 weeks of IV abx, longer course with PO subsequently might be Pt will need to follow with ID - refer to Dr Felipe [phone] He also will need to fu Orthopedics - he can be evaluated as o/p - follow within 2-3 weeks after d/c after the abov arranged he can be d/c'd akua Werner
--- NOTE | 2018-07-14 14:30 | P.DS ---
DS: Providers Date of admission: 07/04/18 17:00 Primary care physician: UNKNOWN Consults: 07/04/18 17:12 Consult to Infectious Diseases Routine Consulting Provider: Latricia Mon Reason for Consultation: elevated WBC 30,000 Liver abcess Temp>100 Notified:: Service Spoke with:: FLAVIO Date Notified:: 07/04/18 Time Notified:: 17:34 Ordering Provider: CLAYTON Brief History from admission: HPI as documented by the admitting physician This is a 33 years old [place] male with unknown past medical history other than the flu in May 2018, and was treated with Tamiflu and Tylenol at that time presents to the emergency department with low back pain radiating down his right leg intermittently for the past 2 weeks. Patient has been in the urgent care twice for evaluation of this, he was started on muscle relaxers, cyclobenzaprine however without relief. He came back after 5 days and was prescribed with diclofenac and methylprednisolone which is getting some relief however only last for 4 hours and the pain comes back. Patient stated when the pain comes it this intense from the scale of 0-10 X12. Patient stated pain started on his lower back and radiates down to the right leg down to knee and his ankle.Patient denies any other medical history, denies any surgical history , denies any smoking, alcohol use or IV drug use. Patient states that he moved down here from [place] 3 years ago. Patient denies any family medical history stated his family are all well and never gets sick. On ED workup patient was found to have elevated WBC of 29.3, ESR 21 and liver mass that is unknown to the patient. Patient denies any symptoms of fever, chills, abdominal pain, nausea or vomiting. Patient denies any other medical history other than the Flu last May. Patient stated the last time he traveled was 3 years ago from [place]. Lumbar spine MRI showed Minimal degenerative disc disease at L4-5 and L5-S1 without central canal stenosis, Minimal caudal right neural foraminal narrowing at L5-S1 without evidence for impingement and No abnormal enhancement CT of Abdomen and Pelvis showed 4.9 x 3.6 x 3.4 cm peripherally enhancing low density mass in segment 8 of the liver extending to the dome. This lesion is most concerning for liver abscess. Less likely differential consideration includes hepatic mass. DS: Diagnosis Discharge Diagnosis (1) Sepsis: Status: Acute (2) Abscess of liver: Status: Acute (3) Osteomyelitis: Status: Acute DS: Summary 33-year-old male with no known past significant medical history who was admitted due to sepsis secondary to a liver abscess. The patient has Klebsiella bacteremia and also found to have osteomyelitis of bilateral femur. Source remains unknown. The patient was admitted and treated under the guidance of infectious disease with broad-spectrum antibiotics including Zosyn. He was eventually switched to Rocephin. He underwent percutaneous drainage of the liver abscess by interventional radiology. Drain eventually discontinued and repeat US of the liver was negative for abscess. The patient had MRI of bilateral lower extremities that were consistent for right femur osteomyelitis and left tibia osteomyelitis. He is discharged with home IV antibiotics on Rocephin to be continued on till 08/20/18. Patient is advised to follow-up outpatient with his PCP. Time Spent with Patient Total time spent providing and/or coordinating discharge services: >30 min Quality: VTE Deep Vein Thrombosis/Pulmonary Embolism Present on Admission: No Exam Narrative Exam Narrative: GENERAL: This is a well-nourished, well-developed patient, in no apparent distress. CARDIOVASCULAR: Normal rate and regular rhythm without murmurs, gallops, or rubs. RESPIRATORY: Good respiratory efforts. Breath sounds equal and clear to auscultation bilaterally. GASTROINTESTINAL: Abdomen soft, right upper quadrant drain appear intact. Minimal drainage. MUSCULOSKELETAL: Extremities without cyanosis, or edema. Tender to palpation over the left anterior tibia. NEURO: Alert & Oriented x4 to person, place, time, situation. Moves all ext x4 PSYCH: Appropriate mood and affect. Results Procedures completed during hospitalization: 1127percutaneous liver abscess drainage placement Labs on day of discharge: Labs from last 24 hours 07/14/18 07/14/18 03:58 03:58 WBC 8.6 RBC 3.77 L Hgb 10.5 L Hct 31.0 L MCV 82.2 MCH 27.7 MCHC 33.7 RDW 13.5 Plt Count 488 H MPV 7.2 Sodium 141 Potassium 4.3 Chloride 102 Carbon Dioxide 32.8 H Anion Gap 6 BUN 17 Creatinine 0.85 Estimated GFR Greater than 89 Random Glucose 95 Calcium 9.8 Impressions ITS Impressions Lumbar Spine MRI 07/04/18 10:49 CONCLUSION: 1. Minimal degenerative disc disease at L4-5 and L5-S1 without central canal stenosis. 2. Minimal caudal right neural foraminal narrowing at L5-S1 without evidence for impingement. 3. No abnormal enhancement. Chest X-Ray 07/04/18 11:54 CONCLUSION: No acute cardiopulmonary process. Abdomen/Pelvis CT 07/04/18 14:04 CONCLUSION: 1. 4.9 x 3.6 x 3.4 cm peripherally enhancing low density mass in segment 8 of the liver extending to the dome. This lesion is most concerning for liver abscess. Less likely differential consideration includes hepatic mass. Abscess Drainage CT 07/06/18 00:00 CONCLUSION: 1. Uncomplicated CT guided drainage of an intrahepatic abscess with 5 mL of pus obtained. This was sent for culture.. Femur X-Ray 07/09/18 00:00 CONCLUSION: Nonspecific cortical erosions involving the medial cortex along the mid shaft of the femur. Patient is currently scheduled for an MRI of the right thigh for further evaluation.. Femur MRI 07/10/18 00:00 CONCLUSION: 1. Abnormal increased signal is noted within the bone marrow through the midshaft of the right femur as well as cortical erosions on the medial cortex of the right femur as noted on the plain films. This is characteristic of osteomyelitis. 2. Nonspecific edema and soft tissue changes in the adjacent soft tissues that parallel the entire shaft of the right femur. Lower Extremity MRI 07/10/18 00:00 CONCLUSION: 1. Diffuse marrow signal edema involving the distal half of the left tibia as well as enhancement of the marrow. There is also edema and enhancement anterior to the tibial cortex in this location. The findings are suggestive of osteomyelitis and adjacent cellulitis until proven otherwise. No deep soft tissue abscess collection is noted. The fibula is normal without marrow edema or enhancement. The underlying muscular structures are unremarkable. 2. Although this examination is not tailored to the right lower leg 8 can be seen on some of the sequences and there appears to be diffuse marrow edema and enhancement throughout the entire right tibia. There is also edema surrounding the right tibia predominantly anterior to the tibial cortex in the lower half. This is also suggestive of osteomyelitis in probable cellulitis. No soft tissue abscess is identified. Tibia/Fibula X-Ray 07/10/18 00:00 CONCLUSION: Negative examination WBC Scan Nuclear Medicine 07/12/18 00:00 CONCLUSION: No abnormal activity is identified within the liver to suggest residual liver abscess. Liver Ultrasound 07/14/18 00:00 CONCLUSION: 1. No acute abnormality is identified to explain the abdominal pain. No liver abscess or liver lesion is identified. 2. Cholelithiasis with mild pericholecystic fluid. However, there are no additional findings to suggest gallbladder obstruction or inflammation. Discharge Plan Discharge Disposition Patient Disposition: W/Home Health Service Discharge Condition Condition: Fair Discharge Order Discharge Orders: Discharge Order (Routine); Ordered 07/14/18 Ordered By: Shirley Werner Discharge Details Discharge Comment: Patient may return to work after 08/20/18 or after obtaining clearance from PCP. Physicians Team ED Provider: Reuben Alicia Primary Care Provider: IMR, Attending Provider: Shirley Werner Other Providers: Latricia Mon Rxs /Orders / Referrals /Forms Prescriptions: No Action cyclobenzaprine 10 mg Tablet 10 mg PO TID RF: 0 diclofenac sodium 75 mg Tablet,Delayed Release (Dr/Ec) 75 mg PO BID RF: 0 Referrals: UNKNOWN, [Primary Care Provider] - See Instructions Discharge Interventions Interventions: Discharge Planning - Case Management Last Done: 07/14/18 12:55 Status ED Status: Left Department
--- NOTE | 2018-07-14 16:06 | P.PNID ---
Subjective Remarks: pt is afebrile co persistent b/l LE pain no fever Antibiotics: CFTX Past Medical History: none Allergies/Adverse Reactions: Allergies No Known Allergies Allergy (Verified 07/04/18 10:26) Objective Vital Signs 07/13/18 20:00 07/14/18 00:00 07/14/18 04:00 Temperature 98.4 F 98.0 F 98.2 F Pulse Rate 95 H 81 90 Respiratory Rate 18 18 18 Blood Pressure 144/63 H 132/63 127/71 Pulse Oximetry 98 98 100 07/14/18 07:41 07/14/18 12:00 Temperature 98.0 F 98.4 F Pulse Rate 73 96 H Respiratory Rate 20 20 Blood Pressure 122/65 96/59 L Pulse Oximetry 100 97 Intake & Output 07/13/18 07/14/18 07/14/18 18:59 06:59 18:59 Intake Total 755 / 755 100 / 100 Output Total 0 / 0 Balance 755 / 755 100 / 100 Weight 64.5 kg 64.5 kg Intake: IV 100 / 100 Rocephin Inj 2,000 MG In NS Inj 100 / 100 100 ML @ 200 mls/hr IV.SIG Q24H SHAUNA Rx#:[id number] Oral 750 / 750 Tube Irrigant 5 / 5 Output: Wound Drainage 0 / 0 Right Upper Abdomen Pigtail 0 / 0 Other: # Voids 2 3 Date of Last Bowel Movement 07/13/18 07/13/18 07/13/18 # Bowel Movements 1 Lab - Hematology Results 07/14/18 03:58 WBC 8.6 RBC 3.77 L Hgb 10.5 L Hct 31.0 L MCV 82.2 MCH 27.7 MCHC 33.7 RDW 13.5 Plt Count 488 H MPV 7.2 Lab - Chemistry Results 07/14/18 03:58 Sodium 141 Potassium 4.3 Chloride 102 Carbon Dioxide 32.8 H Anion Gap 6 BUN 17 Creatinine 0.85 Estimated GFR Greater than 89 Random Glucose 95 Calcium 9.8 Imaging: ITS Impressions Lumbar Spine MRI 07/04/18 10:49 CONCLUSION: 1. Minimal degenerative disc disease at L4-5 and L5-S1 without central canal stenosis. 2. Minimal caudal right neural foraminal narrowing at L5-S1 without evidence for impingement. 3. No abnormal enhancement. Chest X-Ray 07/04/18 11:54 CONCLUSION: No acute cardiopulmonary process. Abdomen/Pelvis CT 07/04/18 14:04 CONCLUSION: 1. 4.9 x 3.6 x 3.4 cm peripherally enhancing low density mass in segment 8 of the liver extending to the dome. This lesion is most concerning for liver abscess. Less likely differential consideration includes hepatic mass. Abscess Drainage CT 07/06/18 00:00 CONCLUSION: 1. Uncomplicated CT guided drainage of an intrahepatic abscess with 5 mL of pus obtained. This was sent for culture.. Femur X-Ray 07/09/18 00:00 CONCLUSION: Nonspecific cortical erosions involving the medial cortex along the mid shaft of the femur. Patient is currently scheduled for an MRI of the right thigh for further evaluation.. Femur MRI 07/10/18 00:00 CONCLUSION: 1. Abnormal increased signal is noted within the bone marrow through the midshaft of the right femur as well as cortical erosions on the medial cortex of the right femur as noted on the plain films. This is characteristic of osteomyelitis. 2. Nonspecific edema and soft tissue changes in the adjacent soft tissues that parallel the entire shaft of the right femur. Lower Extremity MRI 07/10/18 00:00 CONCLUSION: 1. Diffuse marrow signal edema involving the distal half of the left tibia as well as enhancement of the marrow. There is also edema and enhancement anterior to the tibial cortex in this location. The findings are suggestive of osteomyelitis and adjacent cellulitis until proven otherwise. No deep soft tissue abscess collection is noted. The fibula is normal without marrow edema or enhancement. The underlying muscular structures are unremarkable. 2. Although this examination is not tailored to the right lower leg 8 can be seen on some of the sequences and there appears to be diffuse marrow edema and enhancement throughout the entire right tibia. There is also edema surrounding the right tibia predominantly anterior to the tibial cortex in the lower half. This is also suggestive of osteomyelitis in probable cellulitis. No soft tissue abscess is identified. Tibia/Fibula X-Ray 07/10/18 00:00 CONCLUSION: Negative examination WBC Scan Nuclear Medicine 07/12/18 00:00 CONCLUSION: No abnormal activity is identified within the liver to suggest residual liver abscess. Liver Ultrasound 07/14/18 00:00 CONCLUSION: 1. No acute abnormality is identified to explain the abdominal pain. No liver abscess or liver lesion is identified. 2. Cholelithiasis with mild pericholecystic fluid. However, there are no additional findings to suggest gallbladder obstruction or inflammation. Physical Exam: GENERAL: NAD SKIN: Warm and dry. HEAD: Atraumatic. Normocephalic. EYES: Pupils equal and round. No scleral icterus. No injection or drainage. ENT: No nasal bleeding or discharge. Mucous membranes pink and moist. NECK: Trachea midline. No JVD. CARDIOVASCULAR: Regular rate and rhythm. RESPIRATORY: No accessory muscle use. Clear to auscultation. Breath sounds equal bilaterally. GASTROINTESTINAL: Abdomen soft, non-tender, nondistended. Hepatic and splenic margins not palpable. Drain in place RUQ with serosang drainage MUSCULOSKELETAL: Extremities without clubbing, cyanosis, or edema. R thigh anteriorly tender to touch LLE - ill defined tender swelling in mid tibia B/L tibias also tender to palpation NEUROLOGICAL: Awake and alert. Non focal PSYCHIATRIC: Appropriate mood and affect; insight and judgment normal. Assessment and Plan (1) Sepsis Status: Acute Code(s): A41.9 - Sepsis, unspecified organism (2) Abscess of liver Status: Acute Code(s): K75.0 - Abscess of liver (3) Osteomyelitis Status: Acute Code(s): M86.9 - Osteomyelitis, unspecified - Plan Pyogenic abscess, Kleb pneumo sp percutaneous drainage, post removal US negative fever, leukocytosis - resolving 4.9 x 3.6 x 3.4 cm peripherally enhancing low density mass in segment 8 of the liver extending to the dome. This lesion is most concerning for liver abscess Multifocal osteo (R femur, b/l tibia) Ceretec negative -Cont CFTX for 6 weeks OK to dc pt PICC: OK to get PICC line w/o additional blood clx OPAT with 6 weeks of IV abx, longer course with PO subsequently might be Pt will need to follow with ID - refer to Dr Felipe [phone] He also will need to fu Orthopedics - he can be evaluated as o/p - follow within 2-3 weeks after d/c after the above arranged he can be d/c'd akua fatima pt akua Werner
--- NOTE | 2018-07-14 16:40 | ECHRPT ---
Indication: SEPSIS POSS ENDOCARDITIS CONCLUSIONS Normal left ventricular size. Wall thickness is normal. The left ventricular systolic function is normal with an estimated ejection fraction of 55%. Trace mitral valve regurgitation. The estimated pulmonary arterial pressure is 40 mmHg. BP: / HR: Rhythm: MEASUREMENTS (Male / Female) Normal Values Technical Quality: 2D ECHO LV Diastolic Diameter PLAX 5.2 cm 4.2 - 5.9 / 3.9 - 5.3 cm LV Systolic Diameter PLAX 3.2 cm IVS Diastolic Thickness 0.5 cm 0.6 - 1.0 / 0.6 - 0.9 cm LVPW Diastolic Thickness 0.8 cm 0.6 - 1.0 / 0.6 - 0.9 cm LV Relative Wall Thickness 0.2 RV Internal Dim ED PLAX 2.1 cm LVOT Diameter 1.8 cm Aortic Root Diameter 2.0 cm LA Systolic Diameter LX 2.7 cm 3.0 - 4.0 / 2.7 - 3.8 cm LV Ejection Fraction MOD BP 52.7 % >= 55 % LV Ejection Fraction MOD 4C 50.6 % LV Ejection Fraction 4C AL 52.2 % LV Ejection Fraction MOD 2C 52.5 % LV Ejection Fraction 2C AL 54.7 % M-MODE Aortic Root Diameter MM 2.7 cm LA Systolic Diameter MM 2.5 cm LA Ao Ratio MM 0.9 AV Cusp Separation MM 2.2 cm DOPPLER AV Peak Velocity 155.0 cm/s AV Peak Gradient 9.6 mmHg LVOT Peak Velocity 118.0 cm/s LVOT Peak Gradient 5.6 mmHg AV Area Cont Eq pk 1.9 cm Mitral E Point Velocity 104.0 cm/s Mitral A Point Velocity 55.3 cm/s Mitral E to A Ratio 1.9 TR Peak Velocity 271.0 cm/s TR Peak Gradient 29.4 mmHg Right Atrial Pressure 10.0 mmHg Pulmonary Artery Systolic Pressu 39.4 mmHg Right Ventricular Systolic Press 39.4 mmHg PV Peak Velocity 147.0 cm/s PV Peak Gradient 8.6 mmHg FINDINGS LEFT VENTRICLE Normal left ventricular size. Wall thickness is normal. The left ventricular systolic function is normal with an estimated ejection fraction of 55%. RIGHT VENTRICLE Normal right ventricular size and systolic function. LEFT ATRIUM The left atrial size is normal. RIGHT ATRIUM The right atrial size is normal. ATRIAL SEPTUM Normal atrial septal thickness without atrial level shunting by limited color doppler interrogation. AORTA The aortic root and proximal ascending aorta are normal in size on limited imaging. MITRAL VALVE Trace mitral valve regurgitation. AORTIC VALVE Trileaflet aortic valve. No aortic valve stenosis or regurgitation. TRICUSPID VALVE The estimated pulmonary arterial pressure is 40 mmHg. There is estimated mild pulmonary hypertension present (range 40-50 mmHg). PULMONARY VALVE No pulmonary valve regurgitation or stenosis. VESSELS The inferior vena cava is normal in size. PERICARDIUM No pericardial effusion. Marina Rodriguez MD, FACC (Electronically Signed) Final Date:14 July 2018 16:39
[2018-07-14] MEDS ORDERED: Heparin Central Flush 100 UNIT/ML 5 ML Vial IV.FLUSH PRN (17:36)
--- NOTE | 2018-07-14 17:43 | XR ---
EXAM DATE: 07/14/2018 5:40 PM EST AGE/SEX: 33 years / Male INDICATIONS: Post PICC placement, right arm pain. CLINICAL DATA: This is the patient's initial encounter. Patient reports that signs and symptoms have been present for 1 day and indicates a pain score of 2/10. MEDICAL/SURGICAL HISTORY: None. None. COMPARISON: C, CHEST 1V SINGLE AP, 07/04/2018. . FINDINGS: A single AP view of the chest demonstrates the lungs to be symmetrically aerated without evidence of mass, infiltrate or effusion. There is a right-sided PICC line in place. The PICC line appears to be in good position. There is no evidence of pneumothorax. The cardiomediastinal contours are unremarka ble. Osseous structures are intact. No significant changes compared to the prior study. CONCLUSION: 1. Good position of the right-sided PICC line. 2. No focal or acute intrathoracic disease. Electronically signed by: Chavez Rojas MD 07/14/2018 5:42 PM EST
[2018-07-15] MEDS ORDERED: Heparin Central Flush 100 UNIT/ML 5 ML Vial IV.FLUSH SCH (09:00)
== END 2018-07-14 20:36 | disposition home health service (06) ==
LOC: NEPD 10:00 → NEDA 17:00 → NEPGCP 18:59 → H7ONC 07-08 03:43 → N05 07-09 15:55
PROVIDERS: ADMIT Family Medicine; ATTEND Family Medicine
DX: B96.1 Klebsiella pneumoniae [K. pneumoniae] as the cause of diseases classified elsewhere; M86.151 Other acute osteomyelitis, right femur; R74.0 Nonspecific elevation of levels of transaminase and lactic acid dehydrogenase [LDH]; M86.162 Other acute osteomyelitis, left tibia and fibula; L60.0 Ingrowing nail; M54.30 Sciatica, unspecified side; K75.0 Abscess of liver; R16.0 Hepatomegaly, not elsewhere classified; A41.59 Other Gram-negative sepsis; K80.20 Calculus of gallbladder without cholecystitis without obstruction